=== PATIENT | female | born 1965 | race Caucasian/White ===

== ENCOUNTER 2024-05-29 15:56 | Inpatient (IN) | payer OTHER, SELFPAY ==
[2024-05-27] VITALS (10 sets, daily range): BP systolic 111–163; BP diastolic 71–86; BMI 26.7
--- NOTE | 2024-05-27 11:23 | ED.GENMED ---
History of Present Illness
<Argenis Pacheco PA-C - Last Filed: 05/27/24 19:01>
General
Chief Complaint: Abdominal Pain
Source: patient
Exam Limitations: none
Time Seen by Provider: 05/27/24 11:12
Nursing documentation reviewed up to this point in time: agreed with
History of Present Illness
History of Present Illness:
Patient is a 59-year-old female presenting to the emergency department for evaluation of abdominal pain. Patient states that pain started this morning when she woke up around 5:30 AM and was initially noted in the epigastric region. She describes
a sharp/cramping type pain, 10/10 in severity which did migrate and is now diffusely throughout her abdomen. Patient denies any associated nausea, vomiting, diarrhea, or constipation. Patient's last bowel movement was this morning and was normal
per patient. Patient denies any blood in her stool or abnormally dark stool patient denies any urinary symptoms.
Patient states yesterday she was feeling normal and did not have any abdominal pain. She has never experienced symptoms like this in the past.
Review of Systems
<Argenis Pacheco PA-C - Last Filed: 05/27/24 19:01>
Review of Systems
Allergies reviewed?: Yes
All Other Systems: ROS reviewed and negative except as documented in HPI and ROS
Phy Exam
<Argenis Pacheco PA-C - Last Filed: 05/27/24 19:01>
Physical Exam
Physical Exam:
Vitals: Patient's vital signs are stable. Afebrile
General: Patient is moderately uncomfortable due to pain. Nontoxic-appearing
Skin: Warm and dry, no rashes or lesions
Head: Normocephalic, atraumatic
Eyes: Sclera nonicteric. EOMs intact. No nystagmus.
Throat: Protecting airway
Neck: Normal ROM, no cervical spine tenderness, no meningismus. Trachea midline
Cardiac: Regular rate and rhythm, no murmurs.
Pulm: Normal respiratory effort, no wheezes, rales, rhonchi heard on exam.
Abdomen: Moderate diffuse abdominal tenderness with voluntary guarding. No CVA tenderness. No ecchymoses
Extremities: No evidence of cyanosis or edema. Good distal pulses
Neuro: AAOx3. CN II-XII intact. No focal neurologic deficits.
Psychiatric: Normal affect.
Course
<Argenis Pacheco PA-C - Last Filed: 05/27/24 19:01>
Orders/Labs/Results
Orders:
Orders
05/27/24 11:08
ECG [Electrocardiogram (*1)] Urgent
Reason for Study: Abdominal Pain
EKG- Treatment ONCE
05/27/24 11:45
0.9% Sodium Chloride 1000 ml [Nss] 1,000 ml IV BOLUS
HYDROmorphone [Dilaudid] 0.5 mg IV NOW STA
Ondansetron Injectable [Zofran] 4 mg IV NOW STA
05/27/24 11:46
CT Abd/Pel (IV only)-DH only Urgent
Comment:
Reason For Exam: Diffuse abdominal pain
05/27/24 11:55
C-Reactive Protein Urgent
Comment: ESR & CRP ADDED ON BY FLOOR 3:20PM 05-27-24
Complete Blood Count/With Diff Urgent
Comprehensive Metabolic Panel Urgent
Erythrocyte Sed Rate Urgent
Free T4 Urgent
Lactic Acid Q4H
Comment: CANCEL 2nd LACTIC ACID IF 1st LACTIC ACID IS LESS THAN 2
Lipase Urgent
TSH Reflex To Free T4 Urgent
Urinalysis Reflex To Culture Urgent
Date Specimen was Collected: 05/27/24
Time Specimen was Collected: 11:50
Urine Microscopic Reflex Cult Urgent
05/27/24 12:21
Troponin I Urgent
05/27/24 Dinner
NPO
Allow oral meds: Yes
Allow clear liquids: Sips of Clears
05/27/24 15:23
Add On- LAB Urgent
Tests Added?: ESR, CRP
05/27/24 15:50
HYDROmorphone [Dilaudid] 0.5 mg IV NOW STA
Ondansetron Injectable [Zofran] 4 mg IV NOW STA
05/27/24 16:20
Admit/Transfer Patient As Directed
Co-Sign Provider:
Level of Care: Observation services
Assign to:: Medical/Surgical
Physician / Group: farideh
Diagnosis: acute ileitis
Code Status As Directed
Resuscitation Status: Full Code
05/27/24 16:27
MR Enterography Routine
Comment:
Reason For Exam: ileal stricture
Recent pill cam endoscopy?: No
05/27/24 17:52
0.9% Sodium Chloride 1000 ml [Nss] 1,000 ml IV 100 mls/hr
HYDROmorphone [Dilaudid] 0.5 mg IV Q4HPRN PRN
Ondansetron Injectable [Zofran] 4 mg IV Q6HPRN PRN
05/27/24 17:52
GASTROINTESTINAL CONSULT Routine
Consulting Provider: Alan Akins
Was physician already notified: Yes
Activity As Directed
Activity Level: As Tolerated
Vital Signs As Directed
Frequency: Per unit guidelines
DX Deep Vein Thrombosis Video Routine
05/27/24 20:00
Heparin 5,000 units SC Q12
05/27/24 22:00
Amlodipine [Norvasc] 10 mg PO HS
Atenolol [Tenormin] 50 mg PO HS
Fenofibrate 145 [Tricor] 145 mg PO HS
Lisinopril [Zestril] 40 mg PO HS
Rosuvastatin Calcium [Crestor] 40 mg PO HS
05/28/24 06:00
Complete Blood Count/With Diff IN AM
Comprehensive Metabolic Panel IN AM
Levothyroxine [Synthroid] 88 mcg PO DAILY @ 0600
Abnormal Lab Results
05/27/24
11:55
RBC 3.48 L 10^6/uL
(4.20-5.40)
Hct 35.7 L %
(37.0-47.0)
MCV 102.6 H fL
(81.0-99.0)
MCH 35.6 H pg
(27.0-31.0)
Absolute Lymphs (auto) 0.5 L 10^3/uL
(1.2-3.4)
Neutrophils % 81.8 H %
(42.2-75.2)
Lymphocytes % 9.6 L %
(20.5-51.1)
Glucose 156 H mg/dl
(70-99)
C-Reactive Protein 17.30 H mg/L
(0.0-10.00)
TSH (Reflex) 10.70 H uIU/ml
(0.47-4.68)
Urine Ketones Trace A
(Negative)
Urine Bilirubin 1+ A
(Negative)
Urine Urobilinogen 2+ A
(Neg - 1+)
Leukocyte Esterase Rfl Trace A
(Negative)
Urine Bacteria (Reflex) Few A
(Negative)
05/27/24 11:55
05/27/24 11:55
Vital Signs
Initial and Last Documented VS:
Initial Vital Signs
Temp Pulse Resp BP Pulse Ox
98.1 F 96 18 127/83 95
05/27/24 11:05 05/27/24 11:05 05/27/24 11:05 05/27/24 11:05 05/27/24 11:05
Last Documented Vital Signs
Temp Pulse Resp BP Pulse Ox
99.4 F 116 19 141/81 99
07/22/24 18:13 05/27/24 18:13 05/27/24 18:13 05/27/24 18:13 05/27/24 18:24
<Jose Elias Lopez, - Last Filed: 05/27/24 13:46>
Orders/Labs/Results
Orders:
Orders
05/27/24 11:08
ECG [Electrocardiogram (*1)] Urgent
Reason for Study: Abdominal Pain
EKG- Treatment ONCE
05/27/24 11:45
0.9% Sodium Chloride 1000 ml [Nss] 1,000 ml IV BOLUS
HYDROmorphone [Dilaudid] 0.5 mg IV NOW STA
Ondansetron Injectable [Zofran] 4 mg IV NOW STA
05/27/24 11:46
CT Abd/Pel (IV only)-[facility] only Urgent
Comment:
Reason For Exam: Diffuse abdominal pain
05/27/24 11:55
C-Reactive Protein Urgent
Comment: ESR & CRP ADDED ON BY FLOOR 3:20PM 05-27-24
Complete Blood Count/With Diff Urgent
Comprehensive Metabolic Panel Urgent
Erythrocyte Sed Rate Urgent
Free T4 Urgent
Lactic Acid Q4H
Comment: CANCEL 2nd LACTIC ACID IF 1st LACTIC ACID IS LESS THAN 2
Lipase Urgent
TSH Reflex To Free T4 Urgent
Urinalysis Reflex To Culture Urgent
Date Specimen was Collected: 05/27/24
Time Specimen was Collected: 11:50
Urine Microscopic Reflex Cult Urgent
05/27/24 12:21
Troponin I Urgent
05/27/24 Dinner
NPO
Allow oral meds: Yes
Allow clear liquids: Sips of Clears
05/27/24 15:23
Add On- LAB Urgent
Tests Added?: ESR, CRP
05/27/24 15:50
HYDROmorphone [Dilaudid] 0.5 mg IV NOW STA
Ondansetron Injectable [Zofran] 4 mg IV NOW STA
05/27/24 16:20
Admit/Transfer Patient As Directed
Co-Sign Provider:
Level of Care: Observation services
Assign to:: Medical/Surgical
Physician / Group: farideh
Diagnosis: acute ileitis
Code Status As Directed
Resuscitation Status: Full Code
05/27/24 16:27
MR Enterography Routine
Comment:
Reason For Exam: ileal stricture
Recent pill cam endoscopy?: No
05/27/24 17:52
0.9% Sodium Chloride 1000 ml [Nss] 1,000 ml IV 100 mls/hr
HYDROmorphone [Dilaudid] 0.5 mg IV Q4HPRN PRN
Ondansetron Injectable [Zofran] 4 mg IV Q6HPRN PRN
05/27/24 17:52
GASTROINTESTINAL CONSULT Routine
Consulting Provider: Alan Akins
Was physician already notified: Yes
Activity As Directed
Activity Level: As Tolerated
Vital Signs As Directed
Frequency: Per unit guidelines
DX Deep Vein Thrombosis Video Routine
05/27/24 20:00
Heparin 5,000 units SC Q12
05/27/24 22:00
Amlodipine [Norvasc] 10 mg PO HS
Atenolol [Tenormin] 50 mg PO HS
Fenofibrate 145 [Tricor] 145 mg PO HS
Lisinopril [Zestril] 40 mg PO HS
Rosuvastatin Calcium [Crestor] 40 mg PO HS
05/28/24 06:00
Complete Blood Count/With Diff IN AM
Comprehensive Metabolic Panel IN AM
Levothyroxine [Synthroid] 88 mcg PO DAILY @ 0600
Abnormal Lab Results
05/27/24
11:55
RBC 3.48 L 10^6/uL
(4.20-5.40)
Hct 35.7 L %
(37.0-47.0)
MCV 102.6 H fL
(81.0-99.0)
MCH 35.6 H pg
(27.0-31.0)
Absolute Lymphs (auto) 0.5 L 10^3/uL
(1.2-3.4)
Neutrophils % 81.8 H %
(42.2-75.2)
Lymphocytes % 9.6 L %
(20.5-51.1)
Glucose 156 H mg/dl
(70-99)
C-Reactive Protein 17.30 H mg/L
(0.0-10.00)
TSH (Reflex) 10.70 H uIU/ml
(0.47-4.68)
Urine Ketones Trace A
(Negative)
Urine Bilirubin 1+ A
(Negative)
Urine Urobilinogen 2+ A
(Neg - 1+)
Leukocyte Esterase Rfl Trace A
(Negative)
Urine Bacteria (Reflex) Few A
(Negative)
05/27/24 11:55
05/27/24 11:55
Vital Signs
Initial and Last Documented VS:
Initial Vital Signs
Temp Pulse Resp BP Pulse Ox
98.1 F 96 18 127/83 95
05/27/24 11:05 05/27/24 11:05 05/27/24 11:05 05/27/24 11:05 05/27/24 11:05
Last Documented Vital Signs
Temp Pulse Resp BP Pulse Ox
99.4 F 116 19 141/81 99
05/27/24 18:13 05/27/24 18:13 05/27/24 18:13 05/27/24 18:13 05/27/24 18:24
<Argenis Pacheco PA-C - Last Filed: 05/27/24 19:01>
MDM/Problems Addressed
Differential Diagnosis Includes:
Not limited to: Gastroenteritis, pancreatitis, cholecystitis, biliary colic, appendicitis, diverticulitis, mesenteric ischemia, GERD, gastric ulcer, constipation, UTI
MDM/Problems Addressed:
5-year-old female presenting to the emergency department with acute onset significant abdominal pain since this morning. No associated fever, chills, nausea, vomiting, diarrhea. No history of similar symptoms. Vital stable on arrival, afebrile.
Physical exam as above. Patient moderately uncomfortable due to pain. Abdomen is soft with diffuse moderate tenderness with voluntary guarding. Heart regular rate and rhythm. Lungs clear bilaterally. Great distal pulses. Physical exam
difficult due to patient's level discomfort. Will give Dilaudid, Zofran, fluids and reassess once patient more comfortable. Will obtain basic labs, lactic, UA. EKG noted. No acute ischemic changes although there is a left bundle branch block
with no prior EKG to compare to. Given history of epigastric discomfort�will check troponin although patient has no current chest pain or shortness of breath. Do not suspect cardiac process
Labs noted. No clinically significant abnormalities. Troponin is normal. Lactic acid is normal. Urine shows no signs of acute infection. CT pending.
On reexamination�patient does appear somewhat more comfortable following Dilaudid and still has pretty significant abdominal pain, possibly slightly worse in right lower quadrant. Will await CT results.
CT report reviewed which shows acute ileitis and possible findings suggesting terminal ileal stricture. Recommendation for further imaging with MRI. Given patient's significant level of discomfort and findings on CT�will admit for further workup
and pain management. Will check ESR/CRP. No infectious symptoms�will avoid antibiotic this time. Discussed with hospitalist patient accepted to their service.
Chronic conditions affecting care:
N/A
Acute Exacerbation and/or Progression of Chronic Illness:
N/A
<Argenis Pacheco PA-C - Last Filed: 05/27/24 19:01>
*Radiology
Radiology exam reviewed: radiology read reviewed
*Pulse Oximetry
Patient hypoxic: no
*EKG
Interpreted by ED Provider?: Yes
Interpretation: abnormal
Comparison EKG: no comparison EKG present
Heart Rate: 80
Rate: normal
Rhythm: sinus
QRS Pattern: left bundle branch block
Ischemia: no ischemia
*Critical Care Note
Total Time (30-74mins, 75-104mins- exclusive of procedures): Not Applicable
<Argenis Pacheco PA-C - Last Filed: 05/27/24 19:01>
Patient Management
Discussion with other providers: Hospitalist
Escalation/DeEscalation of care consider admission/obs:
Admit for further workup/pain management. Likely will get GI consult
ED Attending Note
<Argenis Pacheco PA-C - Last Filed: 05/27/24 19:01>
-
Portions of this chart may have been created with voice recognition software.� Occasional wrong word or��sound alike� substitutions may have occurred due to the inherent limitations of voice recognition software.
<Jose Elias Lopez DO - Last Filed: 05/27/24 13:46>
ED Attending Note
Patient seen and examined by attending physician: Yes
I performed the substantive portion of visit, reviewed & personally made and approve the management plan that is documented in note by myself or JOB.: Yes
ED Attending Note:
seen with Pa agree with a/p, acute abd pain mid to lower, labs noted, CT pending
Discharge Plan
Departure
Patient Disposition: Admit
Date of Disposition: 05/27/24
Time of Disposition: 15:26
Presentation/result/management discussed w/ accepting MD/DO: Hospitalist
Discharge Problem:
Ileitis, Abdominal pain
Interventions
Interventions:
*Risk Screen - Suicide Last Done: 05/27/24 11:05
*General Assessment Last Done: 05/27/24 11:05
*Neglect/Abuse Screening Last Done: 05/27/24 11:05
ED- Fall Risk Assessment Last Done: 05/27/24 17:59
*ED COVID-19 Vaccine History Last Done: 05/27/24 18:11
*Nursing Disposition Last Done: 05/27/24 17:59
UL-Sixwst-Ndzeqempzb Assessment Last Done: 05/27/24 11:44
Discharge Date and Time
Discharge Date/Time: 05/27/24 18:00
[2024-05-27] MEDS: DILAUDID 0.5 MG IV ×3 (11:54→22:52)
[2024-05-27] MEDS: NSS 1000 IV ×2 (11:54→18:34)
[2024-05-27] MEDS: ZOFRAN 4 MG IV ×2 (11:54→16:21)
[2024-05-27 12:14] LABS: % Basophils 0.6 % (0-2); % Eosinophils 1.5 % (0-6); % Immature Granulocytes 0.2 % (0-0.5); % Lymphocytes 9.6 % (20.5-51.1); % Monocytes 6.3 % (1.7-9.3); % Neutrophils 81.8 % (42.2-75.2); Absolute Eosinophils 0.1 10^3/uL (0-0.7); Absolute Lymphocytes 0.5 10^3/uL (1.2-3.4); Absolute Monocytes 0.3 10^3/uL (0.1-0.6); Absolute Neutrophils 3.9 10^3/uL (1.4-6.5); Hematocrit 35.7 % (37.0-47.0); Hemoglobin 12.4 g/dL (12.0-16.0); Mean Corp Hgb Conc. 34.7 g/dL (33.0-37.0); Mean Corpuscular Hgb 35.6 pg (27.0-31.0); Mean Corpuscular Volume 102.6 fL (81.0-99.0); Mean Platelet Volume 9.3 fL (7.4-10.4); Nucleated Red Blood Cells % 0 %; Platelet Count 178 10^3/uL (130-400); Red Blood Cell Count 3.48 10^6/uL (4.20-5.40); Red Cell Dist. Width 13.8 % (11.5-14.5); White Blood Cell Count 4.8 10^3/uL (4.8-10.8)
[2024-05-27 12:25] LABS: ALT (SGPT) 19 U/L (0-35); AST (SGOT) 30 U/L (14-36); Albumin 4.6 g/dl (3.5-5.0); Alkaline Phosphatase 45 U/L (38-126); Blood Urea Nitrogen 16 mg/dl (7-17); Calcium 9.2 mg/dl (8.4-10.2); Carbon Dioxide 23 mmol/L (22-30); Chloride 104 mmol/L (98-107); Estimated Creatinine Clearance 65 ml/min; Glucose 156 mg/dl (70-99); Lactic Acid 1.5 mmol/L (0.7-2.0); Lipase 120 U/L (23-300); Potassium 4.1 mmol/L (3.5-5.1); Sodium 136 mmol/L (135-145); Total Bilirubin 0.9 mg/dl (0.2-1.3); Total Protein 7.3 g/dl (6.3-8.2); eGFR > 60.00
[2024-05-27 12:28] LABS: Urine Albumin Trace (Neg - Trace); Urine Bilirubin 1+ (Negative); Urine Character Clear (Clear); Urine Color Yellow; Urine Glucose Negative (Negative); Urine Ketone Trace (Negative); Urine Leukocyte Trace (Negative); Urine Nitrite Negative (Negative); Urine Occult Blood Negative (Negative); Urine Specific Gravity 1.015 (<1.030); Urine Urobilinogen 2+ (Neg - 1+); Urine pH 6.5 (5.0-9.0)
[2024-05-27 12:55] LABS: Troponin I < 0.012 ng/ml
[2024-05-27 13:10] LABS: Urine Bacteria Few (Negative); Urine Red Blood Cell 0-2 /HPF (0-2)
[2024-05-27 13:22] LABS: Free T4 1.61 ng/dl (0.78-2.19)
[2024-05-27 15:51] LABS: Erythrocyte Sed Rate 10 mm/hour (0-20)
--- NOTE | 2024-05-27 16:25 | HPS.HSE ---
Family Physician
-
Family Physician: Michelle Morris
Chief Complaint
-
abdominal pain
History of Present Illness
59-year-old female past medical history of hypertension, hypothyroidism, hyperlipidemia, presenting for abdominal pain. She started having abdominal pain this morning located epigastric region described as sharp/cramping and 10 out of 10 in
severity which migrated diffusely throughout her abdomen later. Pain is currently across the lower abdomen bilaterally. Patient denies nausea or vomiting or diarrhea. Her last bowel movement was this morning and normal. Denies any blood in the
stool or dark stool. She denies any urinary symptoms. She has never had symptoms like this before.
She smokes 1 pack of cigarettes per day. He drinks alcohol occasionally. Denies marijuana or any other drugs.
Mother had history of gastric ulcers.
Medical History
Past Medical History
Past Medical History: Reports Other (hypertension, hypothyroidism, hyperlipidemia)
Past Surgical History: Reports None
Social History
Tobacco: Smoker
Alcohol: None
Drug: None
Family History
Family History: Not pertinent
Allergies / Home Medications
Allergies reflects when Allergies were last updated in [facility].
Home Medications with original date entered in [facility]
Allergy/Medication List:
Allergies
Allergy/AdvReac Type Severity Reaction Status Date / Time
No Known Allergies Allergy Verified 05/27/24 11:05
Home Medications
amlodipine 10 mg tablet 10 mg PO HS 05/27/24
atenolol 50 mg tablet 50 mg PO HS 05/27/24
fenofibrate nanocrystallized 145 mg tablet 145 mg PO HS 05/27/24
levothyroxine 88 mcg tablet 88 mcg PO DAILY 05/27/24
lisinopril 40 mg tablet 40 mg PO HS 05/27/24
rosuvastatin 40 mg tablet 40 mg PO HS 05/27/24
Review of Systems
-
History Source: Patient
A 12 point ROS was completed and negative except as noted: Yes
Constitutional: Reports No Symptoms
EENT: Reports No Symptoms
Respiratory: Reports No Symptoms
Cardiac: Reports No Symptoms
Abdomen/GI: Reports See HPI
: Reports No Symptoms
Musculoskeletal: Reports No Symptoms
Skin: Reports No Symptoms
Neurological: Reports No Symptoms
Endocrine: Reports No Symptoms
Hematologic/Lymphatic: Reports No Symptoms
Psych: Reports No Symptoms
Physical Exam
Vital Signs
Vital Signs
Temp Pulse Resp BP Pulse Ox
98.1 F 112 20 138/86 91
05/27/24 11:05 05/27/24 14:29 05/27/24 14:29 05/27/24 15:00 05/27/24 15:30
Physical Exam
General: Well Developed, Well Nourished and No Apparent Distress
HEENT: NormoCephalic, Moist mucous membranes and Atraumatic
Respiratory: Clear
Cardiac: S1/S2 and Regular Rhythm; No Murmur or Rub
GI: Soft, Non Distended, Normal Bowel Sounds and Tender (diffusely ); No Organomegaly
Rectal: Deferred by Provider
Musculoskeletal: No Clubbing, No Cyanosis and No Edema
Skin: No Rash
Neuro: Nonfocal/grossly intact
Laboratory Results
-
05/27/24 11:55
05/27/24 11:55
Laboratory Results
Lactic Acid Cancelled 05/27/24 15:45
Total Bilirubin 0.9 mg/dl (0.2-1.3) 05/27/24 11:55
AST 30 U/L (14-36) 05/27/24 11:55
ALT 19 U/L (0-35) 05/27/24 11:55
Alkaline Phosphatase 45 U/L (38-126) 05/27/24 11:55
Troponin I < 0.012 ng/ml 05/27/24 12:21
Lipase 120 U/L (23-300) 05/27/24 11:55
Data Reviewed
-
Lab Data: Labs Reviewed by me
Old Records: Reviewed
Impression/Plan
-
IMPRESSION:
PLAN:
# Acute ileitis with possible terminal ileitis
-CT abdomen pelvis shows inflammation of distal ileum, collapsed terminal ileum with suspicion for possible terminal ileal stricture
-N.p.o.
-IV fluids
-Zofran, Dilaudid
-MRI enterography ordered
-GI consulted
Essential hypertension
-Continue amlodipine, atenolol, lisinopril
Hypothyroidism
-Continue levothyroxine
Hyperlipidemia
-Continue fenofibrate
Active smoker
Full code
DVT prophylaxis�heparin
N.p.o.
--- NOTE | 2024-05-27 18:23 | PTCARENOTE ---
05/27- Patient transferred and oriented to unit without issue. AAOX3 but anxious, tearful and mildly agitated but cooperative. Patient c/o significant abdominal pain and nausea but denies need to vomit. Med/Surg.
--- NOTE | 2024-05-27 19:09 | CON.GI ---
Consultation
-
Date/Time Consultation Requested: 05/27/24 4:00pm
Date/Time Consultation Performed: 05/27/24 7:10pm
Requesting Provider: Rafael Vizcarra
Performing Provider: Alan Akins
Reason for Consultation: abd pain, abnl CT
Medical History
Chief Complaint / HPI
Chief Complaint: abd pain, abnl CT
History of Present Illness:
Patient is a 59-year-old female who presents with abdominal pain that woke her from sleep this morning. It was severe initially in the epigastric region and then became more diffuse. She denies any symptoms when she went to bed last night. She
denies any fevers, diarrhea, vomiting. Her bowels have been normal. She denies any previous episodes similar to this. No prior colonoscopy. She had cologuard this year that was negative
Past Medical History
Past Medical History: HTN and Hypothyroidism
Past Surgical History: None
Social History
Tobacco: Smoker
Alcohol: None
Family History
Family History: Reviewed & Not Pertinent
Allergies / Home Medications
Allergy/AdvReac Type Severity Reaction Status Date / Time
No Known Allergies Allergy Verified 05/27/24 11:05
�Medication �Instructions �Recorded
amlodipine 10 mg tablet 10 mg PO HS 05/27/24
atenolol 50 mg tablet 50 mg PO HS 05/27/24
fenofibrate nanocrystallized 145 145 mg PO HS 05/27/24
mg tablet
levothyroxine 88 mcg tablet 88 mcg PO DAILY 05/27/24
lisinopril 40 mg tablet 40 mg PO HS 05/27/24
rosuvastatin 40 mg tablet 40 mg PO HS 05/27/24
Review of Systems
-
All other systems: A 12 pt ROS was Negative except as stated above in HPI
Vital Signs
Temp Pulse Resp BP Pulse Ox
99.4 F 116 19 141/81 99
05/27/24 18:13 05/27/24 18:13 05/27/24 18:13 05/27/24 18:13 05/27/24 18:24
Physical Exam
Exam
General: Well Developed and Well Nourished
HEENT: Normocephalic and Atraumatic
Respiratory: Non Labored Respirations
GI: Soft, Non Distended and Tender (Moderately tender to mild palpation diffusely with guarding, no rebound)
Skin: Warm and Dry
Results
WBC 4.8 10^3/uL (4.8-10.8) 05/27/24 11:55
Hgb 12.4 g/dL (12.0-16.0) 05/27/24 11:55
Hct 35.7 % (37.0-47.0) L 05/27/24 11:55
MCV 102.6 fL (81.0-99.0) H 05/27/24 11:55
Plt Count 178 10^3/uL (130-400) 05/27/24 11:55
Absolute Neuts (auto) 3.9 10^3/uL (1.4-6.5) 05/27/24 11:55
Sodium 136 mmol/L (135-145) 05/27/24 11:55
Potassium 4.1 mmol/L (3.5-5.1) 05/27/24 11:55
Chloride 104 mmol/L (98-107) 05/27/24 11:55
Carbon Dioxide 23 mmol/L (22-30) 05/27/24 11:55
BUN 16 mg/dl (7-17) 05/27/24 11:55
Creatinine 0.9 mg/dL (0.6-1.0) 05/27/24 11:55
Calcium 9.2 mg/dl (8.4-10.2) 05/27/24 11:55
Total Bilirubin 0.9 mg/dl (0.2-1.3) 05/27/24 11:55
AST 30 U/L (14-36) 05/27/24 11:55
ALT 19 U/L (0-35) 05/27/24 11:55
Alkaline Phosphatase 45 U/L (38-126) 05/27/24 11:55
Lipase 120 U/L (23-300) 05/27/24 11:55
Diagnostic Image Results:
Prior GI Procedures:
EGD:
Colonoscopy:
Assessment / Plan
-
Summary: 59yo female no significant PMH presents with sudden onset epigastric, then diffuse abd pain x 1 day. Denies diarreha, fever, n/v, sick contacts. CT shows circumferential thickening distal ileum with intraluminal stool and minimal upstream
dilation c/w stricture of TI. Denies NSAIDs. No FH IBD or CRC. No prior colonoscopy.
Impression:
Sudden onset diffuse abd pain x 1 day
Thickening distal ileum with minimal upstream dilation, intraluminal stool ('SB feces sign') suggestive of stricture
Recommendations:
NPO
MR enterography
Start abx to empirically treat possible infectious ileitis
Check stool if diarrhea
-
-
Thank you for consultation and allowing me to participate in the patient's care. Please call the early childhood education instructor GI physician during the after hours with any questions or concerns.
[2024-05-27] MEDS: ZOSYN 50 IV (21:44)
[2024-05-27] MEDS: CRESTOR 40 MG PO (22:44)
[2024-05-27] MEDS: TRICOR 145 MG PO (22:44)
[2024-05-27] MEDS: ZESTRIL 40 MG PO (22:45)
[2024-05-27] MEDS: TENORMIN 50 MG PO (22:45)
[2024-05-27] MEDS: NORVASC 10 MG PO (22:45)
[2024-05-27] MEDS: HEPARIN 5000 UNITS SC (22:47)
[2024-05-28] MEDS: ZOSYN 50 IV ×4 (03:10→20:57)
[2024-05-28] MEDS: DILAUDID 0.5 MG IV ×3 (03:30→20:54)
[2024-05-28] MEDS: SYNTHROID 88 MCG PO (06:06)
[2024-05-28 07:25] VITALS: BP 124/58
[2024-05-28 07:39] LABS: Hemoglobin 11.1 g/dL (12.0-16.0); Mean Corp Hgb Conc. 34.7 g/dL (33.0-37.0); Mean Corpuscular Hgb 35.9 pg (27.0-31.0); Mean Corpuscular Volume 103.6 fL (81.0-99.0); Mean Platelet Volume 9.2 fL (7.4-10.4); Platelet Count 145 10^3/uL (130-400); Red Blood Cell Count 3.09 10^6/uL (4.20-5.40); Red Cell Dist. Width 14.2 % (11.5-14.5); White Blood Cell Count 7.2 10^3/uL (4.8-10.8)
[2024-05-28] MEDS: NICODERM TRANSDERMAL 14 MG TRANSDERM (08:10)
[2024-05-28] MEDS: HEPARIN 5000 UNITS SC ×2 (08:11→20:54)
[2024-05-28 08:14] LABS: ALT (SGPT) 16 U/L (0-35); AST (SGOT) 23 U/L (14-36); Albumin 3.7 g/dl (3.5-5.0); Alkaline Phosphatase 36 U/L (38-126); Blood Urea Nitrogen 15 mg/dl (7-17); Calcium 8.6 mg/dl (8.4-10.2); Carbon Dioxide 23 mmol/L (22-30); Chloride 106 mmol/L (98-107); Estimated Creatinine Clearance 53 ml/min; Glucose 98 mg/dl (70-99); Potassium 4.2 mmol/L (3.5-5.1); Sodium 137 mmol/L (135-145); Total Bilirubin 1.1 mg/dl (0.2-1.3); Total Protein 6.4 g/dl (6.3-8.2); eGFR 57.52
[2024-05-28] MEDS: NSS 1000 IV ×2 (08:14→13:23)
[2024-05-28 10:25] LABS: % Basophils 0.4 % (0-2); % Immature Granulocytes 0.4 % (0-0.5); % Lymphocytes 6.1 % (20.5-51.1); % Monocytes 4.9 % (1.7-9.3); % Neutrophils 87.2 % (42.2-75.2); Absolute Eosinophils 0.1 10^3/uL (0-0.7); Absolute Lymphocytes 0.4 10^3/uL (1.2-3.4); Absolute Monocytes 0.4 10^3/uL (0.1-0.6); Absolute Neutrophils 6.3 10^3/uL (1.4-6.5); Nucleated Red Blood Cells % 0 %
--- NOTE | 2024-05-28 11:15 | W.PN.HOSP.TC ---
Addendum entered and electronically signed by Nash Walsh MD 05/28/24 11:23:
CBC with macrocystic changes, will check B-12, Folate
Pt states she generally drinks 2-3 glasses of wine per week, never more than that amount
Original Note:
Today's Communication/Plan
-
MRI enterography, pending consider Surgical evaluation as per GI
Assessment / Plan
Assessment / Plan
# Acute ileitis with possible terminal ileitis
-CT abdomen pelvis shows inflammation of distal ileum, collapsed terminal ileum with suspicion for possible terminal ileal stricture
-N.p.o.
-IV fluids
-Zofran, Dilaudid
-MRI enterography ordered
-GI consulted, input appreciated
Pt started on Zosyn 3.375 IV q6H
Essential hypertension
-Continue amlodipine, atenolol, lisinopril
Hypothyroidism
-Continue levothyroxine
Hyperlipidemia
-Continue fenofibrate
Active smoker
Full code
DVT prophylaxis�heparin
N.p.o.
Anticipated Discharge: > 48 hours
Subjective/Interval History
-
Date of Service: May 28, 2024
Still with abdominal pain
Objective Data
-
Labs:
Laboratory Results
05/28/24
07:13
WBC 7.2
Hgb 11.1 L
Hct 32.0 L
Plt Count 145
Sodium 137
Potassium 4.2
Chloride 106
Carbon Dioxide 23
BUN 15
Creatinine 1.1 H
Glucose 98
Calcium 8.6
Total Bilirubin 1.1
AST 23
ALT 16
Alkaline Phosphatase 36 L
Vital Signs:
Vital Signs
Temp Pulse Resp BP Pulse Ox
98.4 F 91 19 124/58 92
05/28/24 07:25 05/28/24 07:25 05/28/24 07:25 05/28/24 07:25 05/28/24 07:25
I&O
05/27/24 05/28/24 05/29/24
06:59 06:59 06:59
Intake Total 1250 / 1250
Balance 1250 / 1250
Review of Systems
-
History Source: Patient
Constitutional: Denies Fever
EENT: Reports No Symptoms Reported
Respiratory: Reports No Symptoms; Denies Trouble Breathing
Cardiac: Reports No Symptoms; Denies Chest Pain
Abdomen/GI: Reports Abdominal Pain
Genitourinary: Reports No Symptoms
Physical Exam
-
General: Well Developed, Well Nourished and No Apparent Distress
HEENT: Normocephalic, Atraumatic and Moist Mucous Membranes
Respiratory: Clear to Auscultation; Negative Wheezes, Rales or Rhonchi
Cardiac: Regular Rhythm and S1/S2
GI: Soft, Nondistended, Normal Bowel Sounds and Tender
Musculoskeletal: No Clubbing, No Cyanosis and No Edema
--- NOTE | 2024-05-28 16:09 | CM ---
Atttempted IA 2x- off unit
Pt from home and is OBS
--- NOTE | 2024-05-28 18:01 | W.PN.UPDATE ---
Update Note
Progress Note Update
Attempted to see patient today. 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 Will see the patient tomorrow
[2024-05-28] MEDS: NORVASC 10 MG PO (20:57)
[2024-05-28] MEDS: ZESTRIL 40 MG PO (20:57)
[2024-05-28] MEDS: CRESTOR 40 MG PO (20:57)
[2024-05-28] MEDS: TENORMIN 50 MG PO (20:58)
[2024-05-28] MEDS: TRICOR 145 MG PO (20:58)
[2024-05-28 23:06] VITALS: BP 158/80
[2024-05-29] MEDS: ZOSYN 50 IV ×4 (01:05→20:55)
[2024-05-29] MEDS: NSS 1000 IV ×2 (01:05→12:16)
[2024-05-29] MEDS: DILAUDID 0.5 MG IV ×4 (01:07→20:52)
[2024-05-29] MEDS: ZOFRAN 4 MG IV (05:02)
[2024-05-29] MEDS: SYNTHROID 88 MCG PO (05:03)
[2024-05-29 07:30] VITALS: BP 157/80
[2024-05-29] MEDS: HEPARIN 5000 UNITS SC ×2 (07:41→20:54)
[2024-05-29] MEDS: NICODERM TRANSDERMAL 14 MG TRANSDERM (07:42)
[2024-05-29 09:11] LABS: % Basophils 0.3 % (0-2); % Eosinophils 0.4 % (0-6); % Lymphocytes 5.9 % (20.5-51.1); % Monocytes 3.4 % (1.7-9.3); Absolute Immature Granulocytes 0.1 10^3/uL (0-0.05); Absolute Lymphocytes 0.4 10^3/uL (1.2-3.4); Absolute Monocytes 0.3 10^3/uL (0.1-0.6); Absolute Neutrophils 6.5 10^3/uL (1.4-6.5); Hematocrit 30.7 % (37.0-47.0); Hemoglobin 10.5 g/dL (12.0-16.0); Mean Corp Hgb Conc. 34.2 g/dL (33.0-37.0); Mean Corpuscular Hgb 34.7 pg (27.0-31.0); Mean Corpuscular Volume 101.3 fL (81.0-99.0); Mean Platelet Volume 9.6 fL (7.4-10.4); Nucleated Red Blood Cells % 0 %; Platelet Count 159 10^3/uL (130-400); Red Blood Cell Count 3.03 10^6/uL (4.20-5.40); Red Cell Dist. Width 13.8 % (11.5-14.5); White Blood Cell Count 7.3 10^3/uL (4.8-10.8)
[2024-05-29 10:33] LABS: Blood Urea Nitrogen 16 mg/dl (7-17); Calcium 8.5 mg/dl (8.4-10.2); Carbon Dioxide 19 mmol/L (22-30); Chloride 105 mmol/L (98-107); Estimated Creatinine Clearance 73 ml/min; Glucose 94 mg/dl (70-99); Potassium 3.3 mmol/L (3.5-5.1); Sodium 135 mmol/L (135-145); eGFR > 60.00
[2024-05-29 11:32] LABS: Folate 4.4 ng/ml (2.76-20); Vitamin B12 < 159 pg/ml (239-931)
--- NOTE | 2024-05-29 15:22 | W.PN.HOSP.TC ---
Addendum entered and electronically signed by Nash Walsh MD 05/29/24 15:31:
Vit B12 <159, explains macrocytic changes, will order supplement
Original Note:
Today's Communication/Plan
-
MRE
allow clear liquids
will write for lower dose Dilaudid for less severe pain
Assessment / Plan
Assessment / Plan
# Acute ileitis with possible terminal ileitis. Appears less symptomatic today
-CT abdomen pelvis shows inflammation of distal ileum, collapsed terminal ileum with suspicion for possible terminal ileal stricture
-will allow clear liquids with abd that is softer and less tender
-IV fluids
-Zofran, Dilaudid
-MRI enterography ordered, hopefully will be done today
-GI consulted, input appreciated
Pt started on Zosyn 3.375 IV q6H
Essential hypertension
-Continue amlodipine, atenolol, lisinopril
Hypothyroidism
-Continue levothyroxine
Hyperlipidemia
-Continue fenofibrate
Active smoker
Full code
DVT prophylaxis�heparin
Anticipated Discharge: > 48 hours
Subjective/Interval History
-
Date of Service: May 29, 2024
Was unable to perform MRI due to claustrophilia, but is feeling somewhat better today
Objective Data
-
Labs:
Laboratory Results
05/29/24
08:36
WBC 7.3
Hgb 10.5 L
Hct 30.7 L
Plt Count 159
Sodium 135
Potassium 3.3 L
Chloride 105
Carbon Dioxide 19 L
BUN 16
Creatinine 0.8
Glucose 94
Calcium 8.5
Vital Signs:
Vital Signs
Temp Pulse Resp BP Pulse Ox
98.1 F 81 18 157/80 93
05/29/24 07:30 05/29/24 07:30 05/29/24 07:30 05/29/24 07:30 05/29/24 07:30
I&O
05/28/24 05/29/24 05/30/24
06:59 06:59 06:59
Intake Total 1250 / 1250 1200 / 1200
Balance 1250 / 1250 1200 / 1200
Review of Systems
-
History Source: Patient
Constitutional: Denies Fever
EENT: Reports No Symptoms Reported
Respiratory: Reports No Symptoms; Denies Trouble Breathing
Cardiac: Reports No Symptoms; Denies Chest Pain
Abdomen/GI: Reports Abdominal Pain
Genitourinary: Reports No Symptoms
Physical Exam
-
General: Well Developed, Well Nourished and No Apparent Distress
HEENT: Normocephalic, Atraumatic and Moist Mucous Membranes
Respiratory: Clear to Auscultation; Negative Wheezes, Rales or Rhonchi
Cardiac: Regular Rhythm and S1/S2
GI: Soft, Nondistended, Normal Bowel Sounds (more active today) and Tender (less tender, belly is softer)
Musculoskeletal: No Clubbing, No Cyanosis and No Edema
[2024-05-29 15:31] VITALS: BP 141/77
--- NOTE | 2024-05-29 15:47 | CM ---
geek squad manager reviewed patient's chart and met with patient and patient was admitted under OBS. Patient made aware and became very upset, patient lives alone in a 2 story home, patient is independent with adl's and ambulation, no dme, patient drives.
Pharmacy: [facility].
PCP: Dr. Morris
Plan; Home when stable, no needs.
--- NOTE | 2024-05-29 15:48 | W.PN.GI.CBS2 ---
Addendum entered and electronically signed by Romulo Feliz MD 05/29/24 20:51:
I saw and examined the patient.
The CRIMINAL LAWYER's note was reviewed and I agree with the note.
Impression:
Sudden onset diffuse abd pain / CT abd -Thickening of distal ileum with minimal upstream dilation, intraluminal stool ('SB feces sign') suggestive of stricture/elevated CRP
considering clinical presentation likely infectious unlikely IBD
follow up MRE
continue antibiotics
if diarrhea stool for infections
repeat CRP in am
if abdominal pain persists will recommend surgical eval
Original Note:
Today's Communication / Plan
-
as per plan
Assessment / Plan
-
Summary: 59yo female no significant PMH presents with sudden onset epigastric, then diffuse abd pain x 1 day. Denies diarreha, fever, n/v, sick contacts. CT shows circumferential thickening distal ileum with intraluminal stool and minimal upstream
dilation c/w stricture of TI. Denies NSAIDs. No FH IBD or CRC. No prior colonoscopy.
Impression:
Sudden onset diffuse abd pain x 1 day
Thickening distal ileum with minimal upstream dilation, intraluminal stool ('SB feces sign') suggestive of stricture
Recommendations:
NPO
Continue IVF
MR enterography
Continue IV abx to empirically treat possible infectious ileitis
Check stool if diarrhea
Subjective
Subjective
Date of Service: May 29, 2024
Patient with vomiting after contrast for MRE yesterday. NO BM, no flatus. Still with RLQ pain. Going for MRE today. Continues on IVF for hydration and electrolyte replacement.
Objective
Data Reviewed
Laboratory Data:
Laboratory Results
05/29/24 08:36
05/29/24 08:36
Laboratory Results
Total Bilirubin 1.1 mg/dl (0.2-1.3) 05/28/24 07:13
AST 23 U/L (14-36) 05/28/24 07:13
ALT 16 U/L (0-35) 05/28/24 07:13
Alkaline Phosphatase 36 U/L (38-126) L 05/28/24 07:13
Lipase 120 U/L (23-300) 05/27/24 11:55
Vital Signs and I&O:
Vital Signs
Temp Pulse Resp BP Pulse Ox
98.2 F 86 20 141/77 95
05/29/24 15:31 05/29/24 15:31 05/29/24 15:31 05/29/24 15:31 05/29/24 15:31
I&O
05/28/24 05/29/24 05/30/24
06:59 06:59 06:59
Intake Total 1250 / 1250 1200 / 1200
Balance 1250 / 1250 1200 / 1200
Physical Exam
Physical Exam
HEENT: Anicteric
Cardiology: Normal Sinus Rhythm
Pulmonary: Clear
GI: Soft, Tender (RLQ), Normal Bowel Sounds and Other (mildly distended)
Extremities: No Edema
Neuro: Non Focal
[2024-05-29] MEDS: D5/0.45%NSS with KCL 20 MEQ 1000 IV (15:49)
[2024-05-29] MEDS: CYANOCOBALAMIN 1000 MCG IM (15:50)
[2024-05-29] MEDS: TRICOR 145 MG PO (20:54)
[2024-05-29] MEDS: CRESTOR 40 MG PO (20:54)
[2024-05-29] MEDS: NORVASC 10 MG PO (20:54)
[2024-05-29] MEDS: ZESTRIL 40 MG PO (20:54)
[2024-05-29] MEDS: TENORMIN 50 MG PO (20:59)
[2024-05-29 23:01] VITALS: BP 136/75
[2024-05-29] MEDS: DILAUDID 0.25 MG IV (23:39)
[2024-05-30] VITALS (13 sets, daily range): BP systolic 60–142; BP diastolic 56–81
[2024-05-30] MEDS: ZOSYN 50 IV ×4 (01:19→19:36)
[2024-05-30] MEDS: SYNTHROID 88 MCG PO (03:15)
[2024-05-30] MEDS: DILAUDID 0.5 MG IV ×3 (03:15→15:16)
[2024-05-30] MEDS: D5/0.45%NSS with KCL 20 MEQ 1000 IV (03:15)
[2024-05-30 08:08] LABS: % Basophils 0.2 % (0-2); % Eosinophils 2.5 % (0-6); % Immature Granulocytes 0.8 % (0-0.5); % Lymphocytes 6.9 % (20.5-51.1); % Monocytes 5.2 % (1.7-9.3); % Neutrophils 84.4 % (42.2-75.2); Absolute Eosinophils 0.2 10^3/uL (0-0.7); Absolute Immature Granulocytes 0.1 10^3/uL (0-0.05); Absolute Lymphocytes 0.4 10^3/uL (1.2-3.4); Absolute Monocytes 0.3 10^3/uL (0.1-0.6); Hematocrit 29.5 % (37.0-47.0); Hemoglobin 10.4 g/dL (12.0-16.0); Mean Corp Hgb Conc. 35.3 g/dL (33.0-37.0); Mean Corpuscular Hgb 35.6 pg (27.0-31.0); Mean Platelet Volume 9.1 fL (7.4-10.4); Nucleated Red Blood Cells % 0 %; Platelet Count 156 10^3/uL (130-400); Red Blood Cell Count 2.92 10^6/uL (4.20-5.40); Red Cell Dist. Width 13.3 % (11.5-14.5); White Blood Cell Count 5.9 10^3/uL (4.8-10.8)
[2024-05-30] MEDS: HEPARIN 5000 UNITS SC (08:46)
[2024-05-30] MEDS: CYANOCOBALAMIN 1000 MCG IM (08:48)
[2024-05-30] MEDS: NICODERM TRANSDERMAL 14 MG TRANSDERM (08:48)
[2024-05-30 09:53] LABS: Blood Urea Nitrogen 11 mg/dl (7-17); Calcium 8.7 mg/dl (8.4-10.2); Carbon Dioxide 20 mmol/L (22-30); Chloride 105 mmol/L (98-107); Estimated Creatinine Clearance 73 ml/min; Glucose 124 mg/dl (70-99); Potassium 3.5 mmol/L (3.5-5.1); Sodium 134 mmol/L (135-145); eGFR > 60.00
[2024-05-30 09:58] LABS: C-Reactive Protein > 270.00 mg/L (0.0-10.00)
[2024-05-30] MEDS: ATIVAN 0.5 MG IV (11:39)
[2024-05-30] MEDS: NSS (PRESERVATIVE FREE) 0.25 ML IV (11:40)
--- NOTE | 2024-05-30 12:33 | W.PN.HOSP.TC ---
Today's Communication/Plan
-
MRE
Assessment / Plan
Assessment / Plan
# Acute ileitis with possible terminal ileitis. Appears less symptomatic today
-CT abdomen pelvis shows inflammation of distal ileum, collapsed terminal ileum with suspicion for possible terminal ileal stricture
-will allow clear liquids with abd that is softer and less tender
-IV fluids
-Zofran, Dilaudid
-MRI enterography ordered, pt went down for study shortly after seen by me
-GI consulted, input appreciated
Pt started on Zosyn 3.375 IV q6H
Essential hypertension
-Continue amlodipine, atenolol, lisinopril
BP 141/81
Hypothyroidism
-Continue levothyroxine
Vit B-12 defic
noted pt had macrocytic indices, was not anemic on admission
B-12 <159
will start supplement
Hyperlipidemia
-Continue fenofibrate
Active smoker
Full code
DVT prophylaxis�heparin
Anticipated Discharge: > 48 hours
Subjective/Interval History
-
Date of Service: May 30, 2024
very apprehensive over having MRE and what the results will be and then what follows
Objective Data
-
Labs:
Laboratory Results
05/30/24
07:09
WBC 5.9
Hgb 10.4 L
Hct 29.5 L
Plt Count 156
Sodium 134 L
Potassium 3.5
Chloride 105
Carbon Dioxide 20 L
BUN 11
Creatinine 0.8
Glucose 124 H
Calcium 8.7
Vital Signs:
Vital Signs
Temp Pulse Resp BP Pulse Ox
98.9 F 76 20 141/81 93
05/30/24 07:39 05/30/24 07:39 05/30/24 07:39 05/30/24 07:39 05/30/24 07:39
I&O
05/29/24 05/30/24 05/31/24
06:59 06:59 06:59
Intake Total 1200 / 1200 980 / 980
Balance 1200 / 1200 980 / 980
Review of Systems
-
History Source: Patient
Constitutional: Denies Fever
EENT: Reports No Symptoms Reported
Respiratory: Reports No Symptoms; Denies Trouble Breathing
Cardiac: Reports No Symptoms; Denies Chest Pain
Abdomen/GI: Reports Abdominal Pain and Constipated (no stool and very minimal flatus)
Genitourinary: Reports No Symptoms
Physical Exam
-
General: Well Developed, Well Nourished and No Apparent Distress
HEENT: Normocephalic, Atraumatic and Moist Mucous Membranes
Respiratory: Clear to Auscultation; Negative Wheezes, Rales or Rhonchi
Cardiac: Regular Rhythm and S1/S2
GI: Soft, Nondistended, Normal Bowel Sounds (slightly less active today) and Tender (less tender, belly is softer)
Musculoskeletal: No Clubbing, No Cyanosis and No Edema
--- NOTE | 2024-05-30 13:17 | CM ---
Patient switched to inpatient, patient made aware.
Plan; Home when stable.
--- NOTE | 2024-05-30 15:28 | CON.GS ---
Consultation
-
Performing Provider: Salome
Reason for Consultation: Possible appendicitis
Medical History
-
Chief Complaint: Abdominal pain
History of Present Illness:
Patient is a 59-year-old female who was in her usual baseline state of health until Monday morning at approximately 6 AM she took note of a central/upper abdominal pain discomfort. After going to work her abdominal pain continued to increase in
severity and then localized to his lower abdomen followed by right lower quadrant. It became quite severe to the point that she returned home from work and then presented for emergency department evaluation on Monday05/27/2024 for further
evaluation. Initial CT imaging was reported as acute ileitis. She was admitted with bowel rest, IV fluid, empiric antibiotics and GI consultation. Follow-up MR enterography was obtained today. Patient was unable to complete MR enterography the
other day due to vomiting of contrast agent. After today's MRI radiographic imaging was highly suggestive of appendicitis prompting surgical consultation at this time.
Patient continues to have abdominal pain essentially the same may be slightly improved than emergency department but rather persistent for the past few days. She has anorexia and mild nausea but no vomiting. She feels bloated and has not had a
bowel movement. Chronic lower back pain has bothersome for her as well.
Past Medical History
Past Medical History: Other (Hypothyroid, hypertension, hypercholesterolemia, lumbar back pain)
Past Surgical History: None
Social History
Tobacco: Smoker
Drug: None
Family History
Family History: Reviewed & Noncontributory
Allergies / Home Medications
Allergy/AdvReac Type Severity Reaction Status Date / Time
No Known Allergies Allergy Verified 05/27/24 11:05
�Medication �Instructions �Recorded �Confirmed �Type
amlodipine 10 mg tablet 10 mg PO HS Blood Pressure 05/27/24 05/27/24 History
atenolol 50 mg tablet 50 mg PO HS Blood Pressure 05/27/24 05/27/24 History
fenofibrate nanocrystallized 145 145 mg PO HS High Cholesterol 05/27/24 05/27/24 History
mg tablet
levothyroxine 88 mcg tablet 88 mcg PO DAILY Thyroid 05/27/24 05/27/24 History
lisinopril 40 mg tablet 40 mg PO HS Blood Pressure 05/27/24 05/27/24 History
rosuvastatin 40 mg tablet 40 mg PO HS High Cholesterol 05/27/24 05/27/24 History
Review of Systems
-
History Source: Patient
All other systems: Negative unless noted
A 10 point review of systems was completed, and was negative except as per HPI.
Physical Exam
Vital Signs
Temp Pulse Resp BP Pulse Ox
98.9 F 76 20 141/81 93
05/30/24 07:39 05/30/24 07:39 05/30/24 07:39 05/30/24 07:39 05/30/24 07:39
Body Mass Index (BMI) 26.7
Lab Results
05/30/24 07:09
05/30/24 07:09
WBC 5.9 10^3/uL (4.8-10.8) 05/30/24 07:09
Hgb 10.4 g/dL (12.0-16.0) L 05/30/24 07:09
Hct 29.5 % (37.0-47.0) L 05/30/24 07:09
Plt Count 156 10^3/uL (130-400) 05/30/24 07:09
Abs Immat Gran (auto) 0.1 10^3/uL (0-0.05) H 05/30/24 07:09
Neutrophils % 84.4 % (42.2-75.2) H 05/30/24 07:09
Physical Exam
General: Well Developed, Well Nourished and Other (In no acute distress but uncomfortable and acutely ill-appearing)
HEENT: Normocephalic, Anicteric and Moist Mucous Membranes
Respiratory: Non Labored Respirations (Supplemental oxygen via nasal cannula)
Cardiac: Regular Rhythm
GI: Soft, Tender (Localizing to the right lower quadrant with localized voluntary guarding) and Distended
Skin: Warm
Neuro: AO x 3
Psych: Calm
Data Reviewed
-
CT Scan: Image Personally Visualized and interpreted, Discussed with Physician and Discussed with Patient
MRI: Image Personally Visualized and interpreted, Discussed with Physician and Discussed with Patient
Assessment / Plan
-
Assessment: 59-year-old female with acute appendicitis.
CT imaging with dilated tubular structure right lower quadrant with surrounding inflammatory changes and reactive changes of the terminal ileum and cecum in the vicinity highly suggestive of acute appendicitis. MRI imaging similar with tubular
structure right lower quadrant which seems to be the focus of inflammatory changes with reactive ileus and edema.
Reviewed with patient treatment options which would include continued nonoperative management with bowel rest, antibiotics and IV fluids versus consideration of appendectomy. Reviewing medications patient has been on Zosyn since 05/27/2024 and
continues with signs of appendicitis including anorexia, localizing pain and nausea. While there does not appear to be radiographic evidence of perforation advised patient that I would consider her persistent pain, localizing rebound/guarding
despite more than 48 hours of antibiotic therapy a treatment failure for typical response of acute appendicitis and nonoperative management. We did discuss that options would be either to continue with IV antibiotic therapy or consider
appendectomy. Appendectomy may be a bit more challenging as she has had symptoms now for greater than 72 hours but again imaging does not suggest a severe phlegmonous surrounding inflammatory response or new abscess/perforation.
After discussions with patient she wishes to proceed with appendectomy. Laparoscopic appendectomy was reviewed in detail including the operative technique utilizing a diagram and drawing at bedside. We discussed alternative treatment options as
outlined above including nonoperative management. We discussed potential operative findings and their management including the small but potential risk of severe surrounding inflammatory changes to the point of requiring ileocecectomy. We
discussed the typical postoperative recovery pending operative findings. Reviewed benefits of surgery and risks such as but not limited to bleeding, infectious or wound related complications, iatrogenic injury to surrounding viscera. Discussed
possible utilization of a NICKY drain postoperatively for infection control purposes.
Any of the patient's concerns or questions were fully addressed and informed consent was obtained.
Plan: Patient is on the OR schedule for appendectomy today
Continue Zosyn
N.p.o.
Current supportive care pending OR timing/availability which should be in the quite immediate future.
--- NOTE | 2024-05-30 15:42 | W.SUR.PREOP ---
Pre-Operative Surgical Note
-
I have examined this patient prior to the performance of the scheduled procedure.
The patient's condition is unchanged from the time of the current History and
Physical and the patient is able to undergo the scheduled procedure.
--- NOTE | 2024-05-30 15:52 | W.PN.GI.CBS2 ---
Today's Communication / Plan
-
Scheduled for OR today
Assessment / Plan
-
Summary: 59yo female no significant PMH presents with sudden onset epigastric, then diffuse abd pain x 1 day. Denies diarreha, fever, n/v, sick contacts. CT shows circumferential thickening distal ileum with intraluminal stool and minimal upstream
dilation c/w stricture of TI. Denies NSAIDs. No FH IBD or CRC. No prior colonoscopy.
Impression:
Sudden onset diffuse abd pain x 1 day
Thickening distal ileum with minimal upstream dilation, intraluminal stool ('SB feces sign') suggestive of stricture
MRE 05/30
IMPRESSION: The appendix is enlarged, with diameter of 9 mm. The appendix is enhancing with a thickened wall. There is slight enhancement of the adjacent fat suggesting adjacent inflammation. Correlating with recent CT examination, the findings are
highly suggestive of appendicitis.
There is also thickening and enhancement of loops of distal ileum within the right lower abdomen and upper pelvis, and this most likely represents reactive ileitis from appendicitis.
Dilated loops of small bowel extending to the level of the distal ileum, likely representing small bowel obstruction. These dilated loops of small bowel have increased in caliber compared to CT of May 27, 2024.
There is a small amount of free fluid in the pelvic cul-de-sac. Small amount of mesenteric edema. Small amount of fluid in the right upper quadrant adjacent to the liver.
Recommendations:
Surgical consultation reviewed-scheduled for OR today
NPO
Continue IVF
Continue further management as per surgery
Will sign off. Will be available if any questions.
Total Time Spent with Patient (in minutes): 35
Subjective
Subjective
Date of Service: May 30, 2024
Continues to have abdominal pain. An MRE today
Objective
Data Reviewed
Laboratory Data:
Laboratory Results
05/30/24 07:09
05/30/24 07:09
Laboratory Results
Total Bilirubin 1.1 mg/dl (0.2-1.3) 05/28/24 07:13
AST 23 U/L (14-36) 05/28/24 07:13
ALT 16 U/L (0-35) 05/28/24 07:13
Alkaline Phosphatase 36 U/L (38-126) L 05/28/24 07:13
Lipase 120 U/L (23-300) 05/27/24 11:55
Vital Signs and I&O:
Vital Signs
Temp Pulse Resp BP Pulse Ox
98.2 F 80 18 136/74 90
05/30/24 15:27 05/30/24 15:27 05/30/24 15:27 05/30/24 15:27 05/30/24 15:27
I&O
05/29/24 05/30/24 05/31/24
06:59 06:59 06:59
Intake Total 1200 / 1200 980 / 980
Balance 1200 / 1200 980 / 980
Physical Exam
Physical Exam
GI: Soft, Non Distended and Tender (RLQ)
--- NOTE | 2024-05-30 17:37 | W.IMMPOSTOP ---
Addendum entered and electronically signed by Werner Mcmahon MD 05/30/24 18:03:
#[id number]
Original Note:
Surgical Immed Post Op Note
-
Primary Surgeon: Salome
Assisting Surgeon: None
Pre-op Diagnosis: Acute appendicitis, localized peritonitis, ileus
Post-op Diagnosis: Perforated acute appendicitis with large intra-abdominal abscess, localized peritonitis, severe ileus versus small bowel obstruction
Procedure Performed: Laparoscopic appendectomy and washout of intra-abdominal abscess
Anesthesia Type: GETA +0.25% Marcaine
Specimen / Cultures: Appendix/abscess cultures obtained intraoperatively
Estimated Blood Loss: 8 mL
Complications: None immediate
Operative Findings: Right lower quadrant peritonitis. Severely distended proximal small bowel with what appeared to be transition point from distal ileum adherent to large abscess cavity which was all freed up and cleared. NG tube placed by
anesthesia. Aggarwal catheter placed due to severity of acute illness and probable high risk for postoperative urinary retention. Perforated appendicitis with large abscess in the right lower quadrant. Sigmoid colon, distal ileum and its mesentery
walling off large abscess cavity. All of these interloop and inflammatory adhesions/abscess cavities were completely freed and washed out. Laparoscopic appendectomy able to be completed. Base of appendix taken flush with the cecum utilizing Endo
DIONICIO purple 45 mm stapler.
Drains: 19 Tres from left-sided 5 mm trocar site placed in the deep pelvis and right lower quadrant around terminal ileum, abscess cavity which was evacuated and base of cecum.
Plan: Expecting delayed GI recovery/long postoperative course due to severity of complicated appendicitis
NG tube placed for management of expected ongoing ileus
Aggarwal catheter until ambulatory, abdominal distention improving and postoperative pain controlled
Continue Zosyn -await intraoperative culture results
Maintain NICKY likely throughout hospitalization
Patient advised me preoperatively that she did not request I update any immediate family members or friends postoperatively with phone call.
[2024-05-30] MEDS: VENTOLIN NEBULES 2.5 MG INH (18:36)
[2024-05-30] MEDS: NSS 1000 IV (18:39)
[2024-05-30] MEDS: D5/0.45%NSS with KCL 20 MEQ IV (19:54)
[2024-05-30] MEDS: DILAUDID 1 MG IV (21:44)
[2024-05-31] MEDS: NSS 1000 IV ×4 (01:29→22:57)
[2024-05-31] MEDS: ZOSYN 50 IV ×4 (01:30→20:29)
[2024-05-31] MEDS: DILAUDID 1 MG IV ×4 (01:41→23:46)
[2024-05-31 03:34] VITALS: BP 129/65
[2024-05-31 07:36] VITALS: BP 132/72
[2024-05-31] MEDS: CYANOCOBALAMIN 1000 MCG IM (08:50)
[2024-05-31] MEDS: NICODERM TRANSDERMAL 14 MG TRANSDERM (08:51)
[2024-05-31] MEDS: HEPARIN 5000 UNITS SC (09:03)
[2024-05-31 09:37] LABS: Hematocrit 29.5 % (37.0-47.0); Hemoglobin 10.3 g/dL (12.0-16.0); Mean Corp Hgb Conc. 34.9 g/dL (33.0-37.0); Mean Corpuscular Hgb 34.9 pg (27.0-31.0); Platelet Count 192 10^3/uL (130-400); Red Blood Cell Count 2.95 10^6/uL (4.20-5.40); Red Cell Dist. Width 13.6 % (11.5-14.5); White Blood Cell Count 5.4 10^3/uL (4.8-10.8)
--- NOTE | 2024-05-31 09:42 | W.PN.GS2 ---
Today's Communication / Plan
-
`
Assessment / Plan
-
Assessment: 59-year-old female postop day #1 status post laparoscopic appendectomy and washout of intra-abdominal abscesses for complicated acute appendicitis with large intra-abdominal abscess and resultant ileus/pSBO
AFVSS
Overall appears well postoperatively given severity of her illness and more comfortable than yesterday preop
Quite anxious and tearful
Operative cultures -gram-positive cocci, gram-positive rods
Plan: Multimodal analgesic options -affirmative and Dilaudid
Will add Ativan as needed for patient's anxiety
A.m. labs pending -CBC and BMP
Continue with NG tube decompression due to ileus and probable initial obstructive component from abscess cavity with adherent small bowel that was released
Maintain Aggarwal until postoperative day 2
Zosyn
SCDs/Lovenox for VTE prophylaxis
Protonix for GI prophylaxis while NG tube in place
Subjective Data
-
Date of Service: May 31, 2024
Patient seen and examined.
Crying at bedside and quite anxious.
Preoperative abdominal pain improved. Some drain site pain and incisional pain.
No nausea
No flatus, no bowel movements
Objective Data
-
Intake and Output
05/30/24 05/31/24 06/01/24
06:59 06:59 06:59
Intake Total 980 / 980 1800 / 1800
Output Total 925 / 925
Balance 980 / 980 875 / 875
Intake:
IV fluids (Total) 880 / 880 1610 / 1610
NSS 70 / 70
IV piggybacks 100 / 100 100 / 100
Amount instilled into GI Tube ( 90 / 90
Total)
Howell Sump 90 / 90
Output:
Drain Output (Total) 240 / 240
Right Lower Abdomen Dio- 240 / 240
Soares A
Gastrointestinal tube output ( 160 / 160
Total)
Howell Sump 160 / 160
Urine, Aggarwal 525 / 525
Other:
Number of approximated MODERATE 2
amounts of urine
Vital Signs
Temp Pulse Resp BP Pulse Ox
98 F 82 18 132/72 93
05/31/24 07:36 05/31/24 07:36 05/31/24 07:36 05/31/24 07:36 05/31/24 07:36
Lab Results
05/31/24 09:09
Calcium 8.7 mg/dl (8.4-10.2) 05/30/24 07:09
Total Bilirubin 1.1 mg/dl (0.2-1.3) 05/28/24 07:13
AST 23 U/L (14-36) 05/28/24 07:13
ALT 16 U/L (0-35) 05/28/24 07:13
Alkaline Phosphatase 36 U/L (38-126) L 05/28/24 07:13
Total Protein 6.4 g/dl (6.3-8.2) 05/28/24 07:13
Albumin 3.7 g/dl (3.5-5.0) 05/28/24 07:13
Physical Exam
-
Visibly upset and crying but consolable
Abdomen: Softly distended, not tense. Tympanitic. Tenderness palpation at incision sites, suprapubic and right lower quadrant. No significant guarding or rebound.
NICKY with serosanguineous fluid, a bit murky but not nikunj pus.
[2024-05-31 09:47] LABS: Blood Urea Nitrogen 11 mg/dl (7-17); Calcium 8.2 mg/dl (8.4-10.2); Carbon Dioxide 21 mmol/L (22-30); Chloride 105 mmol/L (98-107); Estimated Creatinine Clearance 73 ml/min; Glucose 102 mg/dl (70-99); Potassium 3.6 mmol/L (3.5-5.1); Sodium 135 mmol/L (135-145); eGFR > 60.00
[2024-05-31] MEDS: PROTONIX IV 40 MG IV (11:15)
[2024-05-31] MEDS: NSS (PRESERVATIVE FREE) 10 ML IV (11:16)
--- NOTE | 2024-05-31 11:37 | W.PN.HOSP.TC ---
Today's Communication/Plan
-
continue NG decompression
Assessment / Plan
Assessment / Plan
# Acute ileitis with possible terminal ileitis. Appears less symptomatic today
-CT abdomen pelvis shows inflammation of distal ileum, collapsed terminal ileum with suspicion for possible terminal ileal stricture
-IV fluids, adjusted as per surgery
-Zofran, Dilaudid
-MRI enterography:The appendix is enlarged, with diameter of 9 mm. The appendix is enhancing with a thickened wall. There is slight enhancement of the adjacent fat suggesting adjacent inflammation. Correlating with recent CT examination, the
findings are highly suggestive of appendicitis.
-GI consulted, input appreciated
Reviewed with Dr. Mcmahon
pt underwent appendectomy 05/30
Pt started on Zosyn 3.375 IV q6H 05/27 and continuing
NG decompression
Essential hypertension
-oral antiHTN: amlodipine, atenolol, lisinopril, on hold with pt NPO
BP 141/81
Hypothyroidism
-Continue levothyroxine
Vit B-12 defic
noted pt had macrocytic indices, was not anemic on admission
B-12 <159
will start supplement
Hyperlipidemia
-Continue fenofibrate
Active smoker
Full code
DVT prophylaxis�Lovenox
Anticipated Discharge: > 48 hours
Subjective/Interval History
-
Date of Service: May 31, 2024
Awake, alert, no flatus yet
Objective Data
-
Labs:
Laboratory Results
05/31/24
09:09
WBC 5.4
Hgb 10.3 L
Hct 29.5 L
Plt Count 192 D
Sodium 135
Potassium 3.6
Chloride 105
Carbon Dioxide 21 L
BUN 11
Creatinine 0.8
Glucose 102 H
Calcium 8.2 L
Vital Signs:
Vital Signs
Temp Pulse Resp BP Pulse Ox
98 F 82 18 132/72 93
05/31/24 07:36 05/31/24 07:36 05/31/24 07:36 05/31/24 07:36 05/31/24 07:36
I&O
05/30/24 05/31/24 06/01/24
06:59 06:59 06:59
Intake Total 980 / 980 1800 / 1800
Output Total 925 / 925
Balance 980 / 980 875 / 875
Review of Systems
-
History Source: Patient and Physician (reviewed with Dr. Mcmahon)
Constitutional: Denies Fever
EENT: Reports No Symptoms Reported and Other (NG tube in place)
Respiratory: Reports No Symptoms; Denies Trouble Breathing
Cardiac: Reports No Symptoms; Denies Chest Pain
Abdomen/GI: Reports Abdominal Pain (post op)
Genitourinary: Reports No Symptoms
Physical Exam
-
General: Well Developed, Well Nourished and No Apparent Distress
HEENT: Normocephalic, Atraumatic, Moist Mucous Membranes and Other (no flattening of tongue papilla)
Respiratory: Clear to Auscultation; Negative Wheezes, Rales or Rhonchi
Cardiac: Regular Rhythm and S1/S2
GI: Soft, Nondistended and Tender (post op); Negative Normal Bowel Sounds
Musculoskeletal: No Clubbing, No Cyanosis and No Edema
--- NOTE | 2024-05-31 14:29 | CM ---
Chart reviewed and patient is now inpatient, patient aware and plan remains for patient to return to home when stable.
Plan; Home alone when stable.
[2024-05-31 15:42] VITALS: BP 148/76
[2024-05-31 16:35] VITALS: BMI 26.7
[2024-05-31] MEDS: LOVENOX 40 MG SC (17:35)
[2024-05-31 19:39] VITALS: BP 159/79
[2024-05-31] MEDS: ATIVAN 0.5 MG IV (20:26)
[2024-05-31] MEDS: NSS (PRESERVATIVE FREE) 0.25 ML IV (20:28)
[2024-05-31 23:31] VITALS: BP 159/80
[2024-06-01] MEDS: ZOSYN 50 IV ×4 (01:38→20:31)
[2024-06-01] MEDS: DILAUDID 1 MG IV ×5 (02:29→20:39)
[2024-06-01 03:07] VITALS: BP 164/82
--- NOTE | 2024-06-01 06:00 | PTCARENOTE ---
Aggarwal catheter d/c'ed, pt. due to void in 6 hours.
[2024-06-01 07:30] VITALS: BP 170/87
[2024-06-01 09:01] LABS: Hematocrit 30.2 % (37.0-47.0); Hemoglobin 10.5 g/dL (12.0-16.0); Mean Corp Hgb Conc. 34.8 g/dL (33.0-37.0); Mean Corpuscular Hgb 34.7 pg (27.0-31.0); Mean Corpuscular Volume 99.7 fL (81.0-99.0); Mean Platelet Volume 8.8 fL (7.4-10.4); Platelet Count 208 10^3/uL (130-400); Red Blood Cell Count 3.03 10^6/uL (4.20-5.40); Red Cell Dist. Width 13.7 % (11.5-14.5); White Blood Cell Count 5.2 10^3/uL (4.8-10.8)
[2024-06-01] MEDS: ATIVAN 0.5 MG IV (09:12)
[2024-06-01] MEDS: NSS (PRESERVATIVE FREE) 0.25 ML IV (09:12)
[2024-06-01] MEDS: NICODERM TRANSDERMAL 14 MG TRANSDERM (09:14)
[2024-06-01] MEDS: NSS (PRESERVATIVE FREE) 10 ML IV (09:14)
[2024-06-01] MEDS: PROTONIX IV 40 MG IV (09:14)
[2024-06-01] MEDS: CYANOCOBALAMIN 1000 MCG IM (09:14)
[2024-06-01 09:25] LABS: Blood Urea Nitrogen 10 mg/dl (7-17); Calcium 8.3 mg/dl (8.4-10.2); Carbon Dioxide 22 mmol/L (22-30); Chloride 106 mmol/L (98-107); Estimated Creatinine Clearance 83 ml/min; Glucose 80 mg/dl (70-99); Potassium 2.9 mmol/L (3.5-5.1); Sodium 136 mmol/L (135-145); eGFR > 60.00
--- NOTE | 2024-06-01 11:03 | W.PN.HOSP.TC ---
Today's Communication/Plan
-
adjust IVF to include KCL
start IV Synthroid
continue NG decompression
continue Zosyn
Continue IV Protonix
Assessment / Plan
Assessment / Plan
# Acute ileitis with possible terminal ileitis. Appears less symptomatic today
-CT abdomen pelvis shows inflammation of distal ileum, collapsed terminal ileum with suspicion for possible terminal ileal stricture
-IV fluids, adjusted as per surgery
-Zofran, Dilaudid
-MRI enterography:The appendix is enlarged, with diameter of 9 mm. The appendix is enhancing with a thickened wall. There is slight enhancement of the adjacent fat suggesting adjacent inflammation. Correlating with recent CT examination, the
findings are highly suggestive of appendicitis.
-GI consulted, input appreciated
Reviewed with Dr. Mcmahon on 05/31
pt underwent appendectomy 05/30
Pt started on Zosyn 3.375 IV q6H 05/27 and continuing
NG decompression, still with post op ileus
Essential hypertension
-oral antiHTN: amlodipine, atenolol, lisinopril, on hold with pt NPO
BP starting to creep up, most recently 170/87, will order IV Hydralazine
Hypokalemia
will write for IV supplement
Hypothyroidism
-Continue levothyroxine, will start on IV 60 mcg qday
Vit B-12 defic
noted pt had macrocytic indices, was not anemic on admission
B-12 <159
will start supplement
Hyperlipidemia
-Continue fenofibrate
Active smoker
Full code
DVT prophylaxis�Lovenox
Anticipated Discharge: > 48 hours
Subjective/Interval History
-
Date of Service: June 01, 2024
Remains very apprehensive, though pain has persisted, may be somewhat lessened
Objective Data
-
Labs:
Laboratory Results
06/01/24 06/01/24
08:17 08:18
WBC 5.2
Hgb 10.5 L
Hct 30.2 L
Plt Count 208
Sodium 136
Potassium 2.9 L
Chloride 106
Carbon Dioxide 22
BUN 10
Creatinine 0.7
Glucose 80
Calcium 8.3 L
Vital Signs:
Vital Signs
Temp Pulse Resp BP Pulse Ox
98.5 F 89 18 170/87 92
06/01/24 07:30 06/01/24 07:30 06/01/24 07:30 06/01/24 07:30 06/01/24 07:30
I&O
05/31/24 06/01/24 06/02/24
06:59 06:59 06:59
Intake Total 1800 / 1800 1200 / 1200
Output Total 925 / 925 1210 / 1210
Balance 875 / 875 -10 / -10
Review of Systems
-
History Source: Patient
Constitutional: Denies Fever
EENT: Reports No Symptoms Reported and Other (NG tube in place)
Respiratory: Reports No Symptoms; Denies Trouble Breathing
Cardiac: Reports No Symptoms; Denies Chest Pain
Abdomen/GI: Reports Abdominal Pain (post op, still with significant pain)
Genitourinary: Reports No Symptoms
Physical Exam
-
General: Well Developed, Well Nourished and No Apparent Distress
HEENT: Normocephalic, Atraumatic, Moist Mucous Membranes and Other (no flattening of tongue papilla)
Respiratory: Clear to Auscultation; Negative Wheezes, Rales or Rhonchi
Cardiac: Regular Rhythm and S1/S2
GI: Soft, Nondistended and Tender (post op); Negative Normal Bowel Sounds (minimal scattered BS noted (was totally absent yesterday))
Musculoskeletal: No Clubbing, No Cyanosis and No Edema
[2024-06-01] MEDS: NSS IV (11:24)
[2024-06-01] MEDS: D5/0.45%NSS with KCL 40 MEQ 1000 IV ×2 (11:42→23:36)
--- NOTE | 2024-06-01 12:52 | W.PN.GS2 ---
Today's Communication / Plan
-
-- No major changes from surgical perspective, awaiting return of bowel function
Assessment / Plan
-
Assessment: 59-year-old female POD#2 status post laparoscopic appendectomy and washout of intra-abdominal abscesses for complicated acute appendicitis with large intra-abdominal abscess and resultant ileus/pSBO
AFVSS
Operative cultures -gram-positive cocci, gram-positive rods
Awaiting ROBF
No major changes from a surgical perspective
Plan:
-- NPO, IVF, NGT decompression
-- Multimodal analgesic options -affirmative and Dilaudid
-- Ativan as needed for patient's anxiety
-- DC Aggarwal
-- Abx: Zosyn
-- SCDs/Lovenox for VTE prophylaxis
-- Protonix for GI prophylaxis while NG tube in place
Subjective Data
-
Date of Service: June 01, 2024
Denies worsening abdominal pain. No nausea or vomiting. No flatus or BM. No fevers. Emotional and teary.
Objective Data
-
Intake and Output
05/31/24 06/01/24 06/02/24
06:59 06:59 06:59
Intake Total 1800 / 1800 1200 / 1200
Output Total 925 / 925 1210 / 1210
Balance 875 / 875 -10 / -10
Intake:
Oral fluids 0 / 0
IV fluids (Total) 1610 / 1610 1100 / 1100
NSS 70 / 70
IV piggybacks 100 / 100 100 / 100
Amount instilled into GI Tube ( 90 /
Total)
[place] Sump 90 / 90
Output:
Drain Output (Total) 240 / 240 110 / 110
Left Lower Abdomen Dio- 85 / 85
Soares
Right Lower Abdomen Dio- 240 / 240 25 / 25
Soares A
Gastrointestinal tube output ( 160 / 160 100 / 100
Total)
[place] Sump 160 / 160 100 / 100
Urine, Agg[place]wal 525 / 525 1000 / 1000
Vital Signs
Temp Pulse Resp BP Pulse Ox
98.5 F 89 18 170/87 92
06/01/24 07:30 06/01/24 07:30 06/01/24 07:30 06/01/24 07:30 06/01/24 07:30
Lab Results
06/01/24 08:17
06/01/24 08:18
Calcium 8.3 mg/dl (8.4-10.2) L 06/01/24 08:18
Total Bilirubin 1.1 mg/dl (0.2-1.3) 05/28/24 07:13
AST 23 U/L (14-36) 05/28/24 07:13
ALT 16 U/L (0-35) 05/28/24 07:13
Alkaline Phosphatase 36 U/L (38-126) L 05/28/24 07:13
Total Protein 6.4 g/dl (6.3-8.2) 05/28/24 07:13
Albumin 3.7 g/dl (3.5-5.0) 05/28/24 07:13
Physical Exam
-
Gen: NAD
HEENT: minimal non-bilious outputs
Abd: soft, tender to palpation, mild/moderate distension, non-peritoneal, incisions c/d/i - no erythema, ecchymosis, or drainage, NICKY serous with minimal purulent/fibrinous debris
[2024-06-01 15:12] VITALS: BP 162/76
[2024-06-01] MEDS: DILAUDID 0.5 MG IV (16:58)
[2024-06-01] MEDS: LOVENOX 40 MG SC (16:59)
[2024-06-01] MEDS: LEVOTHROID 60 MCG IV (18:41)
[2024-06-01 23:14] VITALS: BP 170/93
[2024-06-01] MEDS: APRESOLINE 5 MG IV (23:37)
[2024-06-02] MEDS: DILAUDID 1 MG IV ×5 (00:21→22:05)
[2024-06-02] MEDS: ZOSYN 50 IV ×4 (01:25→20:09)
[2024-06-02 03:42] VITALS: BP 175/93
[2024-06-02 04:00] VITALS: BP 176/92
[2024-06-02 05:53] VITALS: BP 157/90
[2024-06-02] MEDS: APRESOLINE 5 MG IV ×2 (05:55→22:14)
[2024-06-02 06:44] LABS: Hematocrit 30.1 % (37.0-47.0); Hemoglobin 10.6 g/dL (12.0-16.0); Mean Corp Hgb Conc. 35.2 g/dL (33.0-37.0); Mean Corpuscular Hgb 34.4 pg (27.0-31.0); Mean Corpuscular Volume 97.7 fL (81.0-99.0); Mean Platelet Volume 8.7 fL (7.4-10.4); Platelet Count 229 10^3/uL (130-400); Red Blood Cell Count 3.08 10^6/uL (4.20-5.40); Red Cell Dist. Width 13.6 % (11.5-14.5)
[2024-06-02 06:57] LABS: Blood Urea Nitrogen 6 mg/dl (7-17); Calcium 8.4 mg/dl (8.4-10.2); Carbon Dioxide 25 mmol/L (22-30); Chloride 103 mmol/L (98-107); Estimated Creatinine Clearance 83 ml/min; Glucose 130 mg/dl (70-99); Magnesium 1.8 mg/dl (1.6-2.3); Potassium 3.3 mmol/L (3.5-5.1); Sodium 134 mmol/L (135-145); eGFR > 60.00
[2024-06-02 07:00] VITALS: BP 176/94
[2024-06-02] MEDS: PROTONIX IV 40 MG IV (07:58)
[2024-06-02] MEDS: NSS (PRESERVATIVE FREE) 10 ML IV (07:58)
[2024-06-02] MEDS: CYANOCOBALAMIN 1000 MCG IM (07:59)
[2024-06-02] MEDS: NICODERM TRANSDERMAL 14 MG TRANSDERM (08:03)
[2024-06-02] MEDS: D5/0.45%NSS with KCL 40 MEQ 1000 IV ×2 (08:10→22:14)
[2024-06-02 08:39] LABS: % Basophils 0.4 % (0-2); % Eosinophils 4.6 % (0-6); % Immature Granulocytes 5.4 % (0-0.5); % Lymphocytes 12.1 % (20.5-51.1); % Monocytes 11.1 % (1.7-9.3); % Neutrophils 66.4 % (42.2-75.2); Absolute Eosinophils 0.2 10^3/uL (0-0.7); Absolute Immature Granulocytes 0.3 10^3/uL (0-0.05); Absolute Lymphocytes 0.6 10^3/uL (1.2-3.4); Absolute Monocytes 0.6 10^3/uL (0.1-0.6); Absolute Neutrophils 3.3 10^3/uL (1.4-6.5); Nucleated Red Blood Cells % 0 %
--- NOTE | 2024-06-02 10:18 | W.PN.GS2 ---
Addendum entered and electronically signed by Delta Hoyt MD 06/02/24 12:54:
Patient seen and examined.
No other complaints. Pain overall well-controlled. No flatus or BM. Denies nausea or vomiting.
Gen: NAD
HEENT: minimal clear output
Abd: soft, mild to moderate tenderness, distention, tympany, nonperitoneal, incisions c/d/i, NICKY drain serous
59-year-old female POD#3 status post laparoscopic appendectomy and washout of intra-abdominal abscesses for complicated acute appendicitis with large intra-abdominal abscess and resultant ileus/pSBO
No major changes. Plan for abdominal x-ray to confirm NGT placement and assess degree of bowel distention. Awaiting return of bowel function prior to NGT removal.
Original Note:
Today's Communication / Plan
-
abdominal xray
continue ngt
Assessment / Plan
-
Assessment: 59-year-old female POD#3 status post laparoscopic appendectomy and washout of intra-abdominal abscesses for complicated acute appendicitis with large intra-abdominal abscess and resultant ileus/pSBO
AFVSS
Operative cultures -gram-positive cocci, gram-positive rods
Awaiting ROBF
No major changes from a surgical perspective
Plan:
-- NPO, IVF, NGT decompression - Abdominal xray ordered to check placement given lack of output/distention
-- Multimodal analgesic options -affirmative and Dilaudid
-- Ativan as needed for patient's anxiety
-- Abx: Zosyn
-- SCDs/Lovenox for VTE prophylaxis
-- Protonix for GI prophylaxis while NG tube in place
Subjective Data
-
Date of Service: June 02, 2024
Patient states she feels 'okay'. She has had no flatus or bowel movements. Her pain is controlled.
Objective Data
-
Intake and Output
0706/02/24 06/03/24
06:59 06:59 06:59
Intake Total 1200 / 1200 2700 / 2700
Output Total 1210 / 1210 1345 / 1345
Balance -10 / -10 1355 / 1355
Intake:
Oral fluids 0 / 0
IV fluids (Total) 1100 / 1100 2350 / 2350
IV piggybacks 100 / 100 200 / 200
Amount instilled into GI Tube ( 150 / 150
Total)
[place] Sump 150 / 150
Output:
Drain Output (Total) 110 / 110 265 / 265
Left Lower Abdomen Dio- 85 / 85 265 / 265
Soares
Right Lower Abdomen Dio- 25 / 25
Soares A
Gastrointestinal tube output ( 100 / 100 480 / 480
Total)
[place] Sump 100 / 100 480 / 480
Urine, Aggarwal 1000 / 1000
Urine, Voided 600 / 600
Other:
Number of approximated SMALL 1
amounts of urine
Number of approximated MODERATE 2
amounts of urine
Number of approximated LARGE 1
amounts of urine
Vital Signs
Temp Pulse Resp BP Pulse Ox
97.4 F 84 20 176/94 95
06/02/24 07:00 06/02/24 07:00 06/02/24 07:00 06/02/24 07:00 06/02/24 07:00
Lab Results
06/02/24 06:01
06/02/24 06:01
Calcium 8.4 mg/dl (8.4-10.2) 06/02/24 06:01
Magnesium 1.8 mg/dl (1.6-2.3) 06/02/24 06:01
Total Bilirubin 1.1 mg/dl (0.2-1.3) 05/28/24 07:13
AST 23 U/L (14-36) 05/28/24 07:13
ALT 16 U/L (0-35) 05/28/24 07:13
Alkaline Phosphatase 36 U/L (38-126) L 05/28/24 07:13
Total Protein 6.4 g/dl (6.3-8.2) 05/28/24 07:13
Albumin 3.7 g/dl (3.5-5.0) 05/28/24 07:13
Physical Exam
-
Gen: NAD
HEENT: minimal non-bilious outputs
Abd: soft, tender to palpation, moderate distension, non-peritoneal, incisions c/d/i - no erythema, ecchymosis, or drainage, NICKY serous
--- NOTE | 2024-06-02 12:46 | W.PN.HOSP.TC ---
Today's Communication/Plan
-
add Catapress TTS
continue prn Hydralazine
continue IVF with K supplement
follow labs
Assessment / Plan
Assessment / Plan
# Acute appendicitis
POD#3
-CT abdomen pelvis shows inflammation of distal ileum, collapsed terminal ileum with suspicion for possible terminal ileal stricture
-Zofran, Dilaudid
-MRI enterography:The appendix is enlarged, with diameter of 9 mm. The appendix is enhancing with a thickened wall. There is slight enhancement of the adjacent fat suggesting adjacent inflammation. Correlating with recent CT examination, the
findings are highly suggestive of appendicitis.
-GI consulted, input appreciated
pt underwent appendectomy 05/30
Pt started on Zosyn 3.375 IV q6H 05/27 and continuing
NG decompression, still with post op ileus, though appears to be resolving
Surgery ordered KUB to confirm NG tube in correct location
Essential hypertension
-oral antiHTN: amlodipine, atenolol, lisinopril, on hold with pt NPO
BP starting to creep up, most recently 157/90-176/94, ordered IV Hydralazine prn, will start on Catapress TTS until pt able to resume oral antiHTN Rx
Hypokalemia
better 3.6-->2.9-->3.3
will continue for IV supplement
Hypothyroidism
-Continue levothyroxine, will start on IV 60 mcg qday until able to take oral (75% of oral dose to be given IV)
Vit B-12 defic
noted pt had macrocytic indices, was not anemic on admission
B-12 <159
will continue supplement
Hyperlipidemia
-pt currently NPO
Active smoker
remains on Nicoderm
Full code
DVT prophylaxis�Lovenox
Anticipated Discharge: > 48 hours
Subjective/Interval History
-
Date of Service: June 02, 2024
Abdominal pain has lessened, not yet producing flatus
Objective Data
-
Labs:
Laboratory Results
06/02/24
06:01
WBC 5.0
Hgb 10.6 L
Hct 30.1 L
Plt Count 229
Sodium 134 L
Potassium 3.3 L
Chloride 103
Carbon Dioxide 25
BUN 6 L
Creatinine 0.7
Glucose 130 H
Calcium 8.4
Vital Signs:
Vital Signs
Temp Pulse Resp BP Pulse Ox
97.4 F 84 20 176/94 95
06/02/24 07:00 06/02/24 07:00 06/02/24 07:00 06/02/24 07:00 06/02/24 07:00
I&O
06/01/24 06/02/24 06/03/24
06:59 06:59 06:59
Intake Total 1200 / 1200 2700 / 2700
Output Total 1210 / 1210 1345 / 1345 70 / 70
Balance -10 / -10 1355 / 1355 -70 / -70
Review of Systems
-
History Source: Patient
Constitutional: Denies Fever
EENT: Reports No Symptoms Reported and Other (NG tube in place)
Respiratory: Reports No Symptoms; Denies Trouble Breathing
Cardiac: Reports No Symptoms; Denies Chest Pain
Abdomen/GI: Reports Abdominal Pain (post op, starting to lessen in intensity)
Genitourinary: Reports No Symptoms
Physical Exam
-
General: Well Developed, Well Nourished and No Apparent Distress
HEENT: Normocephalic, Atraumatic, Moist Mucous Membranes and Other (no flattening of tongue papilla)
Respiratory: Clear to Auscultation; Negative Wheezes, Rales or Rhonchi
Cardiac: Regular Rhythm and S1/S2
GI: Soft, Nondistended, Normal Bowel Sounds (has become more ctve pst 24 hrs) and Tender (post op)
Musculoskeletal: No Clubbing, No Cyanosis and No Edema
--- NOTE | 2024-06-02 13:21 | CM ---
Patient seen, reports no needs to CM at this time. Patient with NG tube. CM will continue to follow for all discharge planning needs.
Plan; home no needs anticipated.
[2024-06-02] MEDS: CATAPRES-TTS-1 0.1 MG TRANSDERM (13:23)
[2024-06-02 15:00] VITALS: BP 174/99
[2024-06-02] MEDS: LEVOTHROID 60 MCG IV (17:35)
[2024-06-02] MEDS: LOVENOX 40 MG SC (17:36)
--- NOTE | 2024-06-02 19:30 | PTCARENOTE ---
Addendum entered by Trevon Ortega RN 06/03/24 06:29:
Pt still with no complaints of nausea and vomiting at this time
Original Note:
Pt disconnected from suction to ambulate to bathroom. When RN returned, pt stated the NG tube just fell out. Pt had not had much output during the day. No complaints of nausea or vomiting throughout the day, just bloating. Pt had also had return
of flatulence today, and is with good bowel sounds. [facility] and colorectal notified. Both state that it is ok to leave out for now. Will continue to monitor closely.
[2024-06-02 22:37] VITALS: BP 177/109
[2024-06-03] MEDS: ZOSYN 50 IV ×4 (01:01→20:47)
[2024-06-03 01:09] VITALS: BP 169/96
[2024-06-03] MEDS: APRESOLINE 5 MG IV ×2 (04:45→23:40)
[2024-06-03] MEDS: DILAUDID 1 MG IV ×2 (04:50→18:51)
[2024-06-03 07:00] VITALS: BP 123/99
[2024-06-03] MEDS: CYANOCOBALAMIN 1000 MCG IM (08:10)
[2024-06-03] MEDS: PROTONIX IV 40 MG IV (08:11)
[2024-06-03] MEDS: NSS (PRESERVATIVE FREE) 10 ML IV (08:11)
[2024-06-03] MEDS: NICODERM TRANSDERMAL 14 MG TRANSDERM (08:12)
[2024-06-03] MEDS: ATIVAN 0.5 MG IV ×3 (08:18→21:12)
--- NOTE | 2024-06-03 10:37 | CM ---
Chart reviewed and plan is to home when stable.
Plan; Home when stable.
--- NOTE | 2024-06-03 10:42 | W.PN.GS2 ---
Today's Communication / Plan
-
PICC line access
Plan to start TPN and nutrition consult
Assessment / Plan
-
Assessment: 59-year-old female status post laparoscopic appendectomy and washout of intra-abdominal abscesses for complicated acute appendicitis with large intra-abdominal abscess and resultant ileus/pSBO
Operative cultures -gram-positive cocci, gram-positive rods
Awaiting return of bowel function
No major changes from a surgical perspective
Plan:
- NPO, IVF
- PICC line and plan to start TPN, consulted nutrition
- Continue pain control with IV Dilaudid
- Ativan as needed for patient's anxiety
- Continue Abx: IV Zosyn
-- SCDs/Lovenox for VTE prophylaxis
-- Protonix for GI prophylaxis while NG tube in place
Time Spent
Total Time Spent with Patient (in minutes): 15
Subjective Data
-
Date of Service: June 03, 2024
Interval Events:
ongoing mild abdominal pain. Denies Nausea/Vomiting. No fevers. NO STOOLS as of now.
Objective Data
-
Intake and Output
06/02/24 06/03/24 06/04/24
06:59 06:59 06:59
Intake Total 2700 / 2700 1480 / 1480
Output Total 1345 / 1345 285 / 285
Balance 1355 / 1355 1195 / 1195
Intake:
Oral fluids 480 / 480
IV fluids (Total) 2350 / 2350 1000 / 1000
IV piggybacks 200 / 200
Amount instilled into GI Tube ( 150 / 150
Total)
[place] Sump 150 / 150
Output:
Drain Output (Total) 265 / 265 285 / 285
Left Lower Abdomen Dio- 265 / 265 285 / 285
Soares
Gastrointestinal tube output ( 480 / 480
Total)
[place] Sump 480 / 480
Urine, Voided 600 / 600
Other:
Number of approximated SMALL 1 1
amounts of urine
Number of approximated MODERATE 2 4
amounts of urine
Number of approximated LARGE 1
amounts of urine
Vital Signs
Temp Pulse Resp BP Pulse Ox
98.2 F 87 20 123/99 94
06/03/24 07:00 06/03/24 07:00 06/03/24 07:00 06/03/24 07:00 06/03/24 07:00
Lab Results
06/02/24 06:01
06/02/24 06:01
Calcium 8.4 mg/dl (8.4-10.2) 06/02/24 06:01
Magnesium 1.8 mg/dl (1.6-2.3) 06/02/24 06:01
Total Bilirubin 1.1 mg/dl (0.2-1.3) 05/28/24 07:13
AST 23 U/L (14-36) 05/28/24 07:13
ALT 16 U/L (0-35) 05/28/24 07:13
Alkaline Phosphatase 36 U/L (38-126) L 05/28/24 07:13
Total Protein 6.4 g/dl (6.3-8.2) 05/28/24 07:13
Albumin 3.7 g/dl (3.5-5.0) 05/28/24 07:13
Physical Exam
-
GENERAL/NEURO: Awake, Alert, no distress
CHEST: Unlabored breathing on RA
ABDOMEN: Soft, Non-Tender, some Distension, surgical incisions clean dry and intact.
[2024-06-03] MEDS: D5/0.45%NSS with KCL 40 MEQ 1000 IV (12:30)
[2024-06-03 13:20] LABS: Hematocrit 33.2 % (37.0-47.0); Hemoglobin 11.8 g/dL (12.0-16.0); Mean Corp Hgb Conc. 35.5 g/dL (33.0-37.0); Mean Corpuscular Hgb 34.2 pg (27.0-31.0); Mean Corpuscular Volume 96.2 fL (81.0-99.0); Mean Platelet Volume 8.8 fL (7.4-10.4); Platelet Count 274 10^3/uL (130-400); Red Blood Cell Count 3.45 10^6/uL (4.20-5.40); Red Cell Dist. Width 13.9 % (11.5-14.5); White Blood Cell Count 5.5 10^3/uL (4.8-10.8)
[2024-06-03 13:35] LABS: Blood Urea Nitrogen 4 mg/dl (7-17); Calcium 8.8 mg/dl (8.4-10.2); Carbon Dioxide 22 mmol/L (22-30); Chloride 105 mmol/L (98-107); Estimated Creatinine Clearance 83 ml/min; Glucose 121 mg/dl (70-99); Potassium 3.8 mmol/L (3.5-5.1); Sodium 133 mmol/L (135-145); eGFR > 60.00
--- NOTE | 2024-06-03 13:43 | W.PN.HOSP.TC ---
Today's Communication/Plan
-
NPO
PICC line for TPN
Nutrition consult
f/u cultures
abx
Assessment / Plan
Assessment / Plan
# Acute appendicitis
POD#4
-CT abdomen pelvis shows inflammation of distal ileum, collapsed terminal ileum with suspicion for possible terminal ileal stricture
-Zofran, Dilaudid
-MRI enterography:The appendix is enlarged, with diameter of 9 mm. The appendix is enhancing with a thickened wall. There is slight enhancement of the adjacent fat suggesting adjacent inflammation. Correlating with recent CT examination, the
findings are highly suggestive of appendicitis.
-GI consulted, input appreciated
pt underwent appendectomy 05/30
Pt started on Zosyn 3.375 IV q6H 05/27 and continuing
NG decompression, still with post op ileus, though appears to be resolving
Surgery ordered KUB to confirm NG tube in correct location
#Severe Adynamic Ileus
-NGT came out yesterday
-NPO
-PICC line for TPN
-Nutrition consult
#Hyponatremia
-mild
-ctm
Essential hypertension
-oral antiHTN: amlodipine, atenolol, lisinopril, on hold with pt NPO
IV Hydralazine prn,
-Added Catapress TTS until pt able to resume oral antiHTN Rx
Hypokalemia
monitor and replete
Hypothyroidism
-Continue levothyroxine, will start on IV 60 mcg qday until able to take oral (75% of oral dose to be given IV)
Vit B-12 defic
noted pt had macrocytic indices, was not anemic on admission
B-12 <159
will continue supplement
Hyperlipidemia
-pt currently NPO
Active smoker
remains on Nicoderm
Full code
DVT prophylaxis�Lovenox
Anticipated Discharge: > 48 hours
Subjective/Interval History
-
Date of Service: June 03, 2024
pasing gas, no bms - severe adynamic ileus on imaging
Objective Data
-
Labs:
Laboratory Results
06/03/24
13:05
WBC 5.5
Hgb 11.8 L
Hct 33.2 L
Plt Count 274
Sodium 133 L
Potassium 3.8
Chloride 105
Carbon Dioxide 22
BUN 4 L
Creatinine 0.7
Glucose 121 H
Calcium 8.8
Vital Signs:
Vital Signs
Temp Pulse Resp BP Pulse Ox
98.2 F 87 20 123/99 94
06/03/24 07:00 06/03/24 07:00 06/03/24 07:00 06/03/24 07:00 06/03/24 07:00
I&O
06/02/24 06/03/24 06/04/24
06:59 06:59 06:59
Intake Total 2700 / 2700 1480 / 1480
Output Total 1345 / 1345 285 / 285
Balance 1355 / 1355 1195 / 1195
Review of Systems
-
History Source: Patient
Constitutional: Denies Fever
EENT: Reports No Symptoms Reported and Other (NG tube in place)
Respiratory: Reports No Symptoms; Denies Trouble Breathing
Cardiac: Reports No Symptoms; Denies Chest Pain
Abdomen/GI: Reports Abdominal Pain (post op, starting to lessen in intensity)
Genitourinary: Reports No Symptoms
Physical Exam
-
General: Well Developed, Well Nourished and No Apparent Distress
HEENT: Normocephalic, Atraumatic, Moist Mucous Membranes and Other (no flattening of tongue papilla)
Respiratory: Clear to Auscultation; Negative Wheezes, Rales or Rhonchi
Cardiac: Regular Rhythm and S1/S2
GI: Soft, Nondistended, Normal Bowel Sounds (has become more ctve pst 24 hrs) and Tender (post op)
Musculoskeletal: No Clubbing, No Cyanosis and No Edema
Data Reviewed
-
Diagnostic Radiology: Image personally visualized and interpreted and Report Reviewed by me
Labs: Labs Reviewed by me
[2024-06-03] MEDS: D5/0.45%NSS with KCL 40 MEQ IV (14:16)
[2024-06-03 15:00] VITALS: BP 171/98
[2024-06-03] MEDS: D5/0.45%NACL 1000 IV (16:20)
[2024-06-03] MEDS: LEVOTHROID 60 MCG IV (18:52)
[2024-06-03] MEDS: LOVENOX 40 MG SC (18:52)
--- NOTE | 2024-06-03 19:08 | VATNOTE ---
06/03 Spoke with Radiologist, advised to pull 3cm out and x ray for final picc placement confirmation. conversation via [employer].
--- NOTE | 2024-06-03 19:28 | VATNOTE ---
pulled right picc out 3 cm per instruction radiolgist via TT with previous VAT RN , Sis Castellanos Awaiting repeat CXR for TPN tonight.
[2024-06-03] MEDS: NSS (PRESERVATIVE FREE) 0.25 ML IV (21:11)
[2024-06-03 23:00] VITALS: BP 163/98
[2024-06-04] MEDS: ZOSYN 50 IV ×4 (02:50→20:18)
[2024-06-04 02:57] VITALS: BP 174/93
[2024-06-04 05:05] LABS: Hematocrit 32.4 % (37.0-47.0); Hemoglobin 11.5 g/dL (12.0-16.0); Mean Corp Hgb Conc. 35.5 g/dL (33.0-37.0); Mean Corpuscular Hgb 35.2 pg (27.0-31.0); Mean Corpuscular Volume 99.1 fL (81.0-99.0); Mean Platelet Volume 9.1 fL (7.4-10.4); Platelet Count 270 10^3/uL (130-400); Red Blood Cell Count 3.27 10^6/uL (4.20-5.40); Red Cell Dist. Width 13.6 % (11.5-14.5); White Blood Cell Count 5.5 10^3/uL (4.8-10.8)
[2024-06-04 05:27] LABS: ALT (SGPT) 13 U/L (0-35); AST (SGOT) 25 U/L (14-36); Albumin 2.9 g/dl (3.5-5.0); Alkaline Phosphatase 43 U/L (38-126); Blood Urea Nitrogen 4 mg/dl (7-17); Calcium 8.7 mg/dl (8.4-10.2); Carbon Dioxide 23 mmol/L (22-30); Chloride 106 mmol/L (98-107); Estimated Creatinine Clearance 83 ml/min; Glucose 111 mg/dl (70-99); Magnesium 1.7 mg/dl (1.6-2.3); Phosphorus 2.9 mg/dl (2.5-4.5); Potassium 3.6 mmol/L (3.5-5.1); Sodium 133 mmol/L (135-145); Total Bilirubin 0.7 mg/dl (0.2-1.3); Total Protein 5.6 g/dl (6.3-8.2); eGFR > 60.00
[2024-06-04] MEDS: D5/0.45%NACL 1000 IV ×2 (05:48→17:33)
[2024-06-04 07:00] VITALS: BP 162/95
[2024-06-04] MEDS: NICODERM TRANSDERMAL 14 MG TRANSDERM (08:17)
[2024-06-04] MEDS: CYANOCOBALAMIN 1000 MCG IM (08:19)
[2024-06-04] MEDS: PROTONIX IV 40 MG IV (08:20)
[2024-06-04] MEDS: NSS (PRESERVATIVE FREE) 10 ML IV (08:20)
--- NOTE | 2024-06-04 10:18 | W.PN.GS2 ---
Today's Communication / Plan
-
- Clears, hold on TPN
- IVF
Assessment / Plan
-
Assessment: 59-year-old female POD#5 s/p laparoscopic appendectomy and washout of intra-abdominal abscesses for complicated acute appendicitis with large intra-abdominal abscess and resultant ileus/pSBO
Operative cultures - E.coli
ROBF, remains distended with tympany, going slow
No major changes from a surgical perspective
Plan:
- Clears, hold on TPN
- IVF
- Continue pain control with IV Dilaudid
- Ativan as needed for patient's anxiety
- Continue Abx: IV Zosyn
- SCDs/Lovenox for VTE prophylaxis
- GI ppx with Protonix
- Encourage ambulation
Subjective Data
-
Date of Service: June 04, 2024
Reports improved abdominal pain and distention. Denies nausea or vomiting. Passing flatus and nonbloody stool. Afebrile.
Objective Data
-
Intake and Output
06/03/24 06/04/24 06/05/24
06:59 06:59 06:59
Intake Total 1480 / 1480 2160 / 2160
Output Total 285 / 285 305 / 305
Balance 1195 / 1195 1855 / 1855
Intake:
Oral fluids 480 / 480 60 / 60
IV fluids (Total) 1000 / 1000 1900 / 1900
IV piggybacks 200 / 200
Output:
Drain Output (Total) 285 / 285 305 / 305
Left Lower Abdomen Dio- 285 / 285 305 / 305
Soares
Other:
Number of approximated SMALL 1
amounts of urine
Number of approximated MODERATE 4 2
amounts of urine
Vital Signs
Temp Pulse Resp BP Pulse Ox
97.9 F 88 16 162/95 95
06/04/24 07:00 06/04/24 07:00 06/04/24 07:00 06/04/24 07:00 06/04/24 07:00
Lab Results
06/04/24 04:42
06/04/24 04:42
Calcium 8.7 mg/dl (8.4-10.2) 06/04/24 04:42
Phosphorus 2.9 mg/dl (2.5-4.5) 06/04/24 04:42
Magnesium 1.7 mg/dl (1.6-2.3) 06/04/24 04:42
Total Bilirubin 0.7 mg/dl (0.2-1.3) 06/04/24 04:42
AST 25 U/L (14-36) 06/04/24 04:42
ALT 13 U/L (0-35) 06/04/24 04:42
Alkaline Phosphatase 43 U/L (38-126) 06/04/24 04:42
Total Protein 5.6 g/dl (6.3-8.2) L 06/04/24 04:42
Albumin 2.9 g/dl (3.5-5.0) L 06/04/24 04:42
Physical Exam
-
Gen: NAD
Abd: soft, mild tenderness, distended, tympanitic (improved), non-peritoneal, incisions c/d/i, NICKY serous
--- NOTE | 2024-06-04 10:49 | PTCARENOTE ---
pt was very tearful this morning (49928 and stated that she was going to go on TPN. Pt is now much more cheerful (2345) as the MD stated they are going to hold off on the TPN for now. Pt very happen, and stated that she will ring it she needs
anything.
--- NOTE | 2024-06-04 11:44 | CM ---
Chart reviewed and case loader operator will follow with patient progress for discharge planning needs.
Plan; To follow with progress.
--- NOTE | 2024-06-04 13:49 | W.PN.HOSP.TC ---
Today's Communication/Plan
-
CLD
Abx
Will switch to PO regimen if continues to tolerate Diet
Assessment / Plan
Assessment / Plan
# Acute appendicitis
POD#5
-CT abdomen pelvis shows inflammation of distal ileum, collapsed terminal ileum with suspicion for possible terminal ileal stricture
-Zofran, Dilaudid
-MRI enterography:The appendix is enlarged, with diameter of 9 mm. The appendix is enhancing with a thickened wall. There is slight enhancement of the adjacent fat suggesting adjacent inflammation. Correlating with recent CT examination, the
findings are highly suggestive of appendicitis.
-GI consulted, input appreciated
pt underwent appendectomy 05/30
Pt started on Zosyn 3.375 IV q6H 05/27 and continuing - can narrow to PO regimen upon DC
#Severe Adynamic Ileus
-bm yesterday
-Advance to [facility]D
-Nutrition consult
#Hyponatremia
-mild
-ctm
Essential hypertension
-oral antiHTN: amlodipine, atenolol, lisinopril, on hold with pt NPO
IV Hydralazine prn,
-Added Catapress TTS until pt able to resume oral antiHTN Rx - can resume PO regimen if OK with Clears
Hypokalemia
monitor and replete
Hypothyroidism
-Continue levothyroxine, will start on IV 60 mcg qday until able to take oral (75% of oral dose to be given IV)
Vit B-12 defic
noted pt had macrocytic indices, was not anemic on admission
B-12 <159
will continue supplement
Hyperlipidemia
-pt currently NPO
Active smoker
remains on Nicoderm
Full code
DVT prophylaxis�Lovenox
Anticipated Discharge: 24 - 48 hours
Subjective/Interval History
-
Date of Service: June 04, 2024
had bm yesterday
Objective Data
-
Labs:
Laboratory Results
06/04/24
04:42
WBC 5.5
Hgb 11.5 L
Hct 32.4 L
Plt Count 270
Sodium 133 L
Potassium 3.6
Chloride 106
Carbon Dioxide 23
BUN 4 L
Creatinine 0.7
Glucose 111 H
Calcium 8.7
Total Bilirubin 0.7
AST 25
ALT 13
Alkaline Phosphatase 43
Vital Signs:
Vital Signs
Temp Pulse Resp BP Pulse Ox
97.9 F 88 16 162/95 95
06/04/24 07:00 06/04/24 07:00 06/04/24 07:00 06/04/24 07:00 06/04/24 07:00
I&O
06/03/24 06/04/24 06/05/24
06:59 06:59 06:59
Intake Total 1480 / 1480 2160 / 2160
Output Total 285 / 285 305 / 305
Balance 1195 / 1195 1855 / 1855
Review of Systems
-
History Source: Patient
Constitutional: Denies Fever
EENT: Reports No Symptoms Reported and Other (NG tube in place)
Respiratory: Reports No Symptoms; Denies Trouble Breathing
Cardiac: Reports No Symptoms; Denies Chest Pain
Abdomen/GI: Reports Abdominal Pain (post op, starting to lessen in intensity)
Genitourinary: Reports No Symptoms
Physical Exam
-
General: Well Developed, Well Nourished and No Apparent Distress
HEENT: Normocephalic, Atraumatic, Moist Mucous Membranes and Other (no flattening of tongue papilla)
Respiratory: Clear to Auscultation; Negative Wheezes, Rales or Rhonchi
Cardiac: Regular Rhythm and S1/S2
GI: Soft, Nondistended, Normal Bowel Sounds (has become more ctve pst 24 hrs) and Tender (post op)
Musculoskeletal: No Clubbing, No Cyanosis and No Edema
Data Reviewed
-
Diagnostic Radiology: Image personally visualized and interpreted and Report Reviewed by me
Labs: Labs Reviewed by me
[2024-06-04] MEDS: APRESOLINE 5 MG IV (14:57)
[2024-06-04 15:00] VITALS: BP 179/98
[2024-06-04] MEDS: LEVOTHROID 60 MCG IV (17:32)
[2024-06-04] MEDS: LOVENOX 40 MG SC (17:32)
[2024-06-04 18:06] VITALS: BP 161/85
[2024-06-04] MEDS: ATIVAN 0.5 MG IV (18:15)
[2024-06-04] MEDS: NSS (PRESERVATIVE FREE) 0.25 ML IV (18:15)
[2024-06-04 23:00] VITALS: BP 149/90
[2024-06-05] MEDS: ZOSYN 50 IV ×2 (03:00→07:53)
[2024-06-05 05:34] LABS: Hematocrit 30.1 % (37.0-47.0); Hemoglobin 10.7 g/dL (12.0-16.0); Mean Corp Hgb Conc. 35.5 g/dL (33.0-37.0); Mean Corpuscular Hgb 34.5 pg (27.0-31.0); Mean Corpuscular Volume 97.1 fL (81.0-99.0); Mean Platelet Volume 8.9 fL (7.4-10.4); Platelet Count 280 10^3/uL (130-400); Red Cell Dist. Width 13.8 % (11.5-14.5)
[2024-06-05 05:57] LABS: ALT (SGPT) 14 U/L (0-35); AST (SGOT) 28 U/L (14-36); Albumin 2.9 g/dl (3.5-5.0); Alkaline Phosphatase 41 U/L (38-126); Blood Urea Nitrogen 5 mg/dl (7-17); Calcium 8.8 mg/dl (8.4-10.2); Carbon Dioxide 24 mmol/L (22-30); Chloride 106 mmol/L (98-107); Estimated Creatinine Clearance 73 ml/min; Glucose 105 mg/dl (70-99); Potassium 3.3 mmol/L (3.5-5.1); Sodium 135 mmol/L (135-145); Total Bilirubin 0.7 mg/dl (0.2-1.3); Total Protein 5.5 g/dl (6.3-8.2); eGFR > 60.00
[2024-06-05 07:00] VITALS: BP 162/95
[2024-06-05] MEDS: NICODERM TRANSDERMAL 14 MG TRANSDERM (07:53)
[2024-06-05] MEDS: CYANOCOBALAMIN 1000 MCG IM (07:54)
[2024-06-05] MEDS: PROTONIX IV 40 MG IV (07:54)
[2024-06-05] MEDS: NSS (PRESERVATIVE FREE) 10 ML IV (07:55)
[2024-06-05] MEDS: KCL 270 MEQ IV (09:37)
--- NOTE | 2024-06-05 10:44 | W.PN.GS2 ---
Today's Communication / Plan
-
Adv to LRD
DC IVF
Multimodal pain mgmt
Assessment / Plan
-
Assessment: 59-year-old female POD#6 s/p laparoscopic appendectomy and washout of intra-abdominal abscesses for complicated acute appendicitis with large intra-abdominal abscess and resultant ileus/pSBO
Operative cultures - E.coli
ROBF, remains distended with tympany, going slow
No major changes from a surgical perspective
Plan:
- Adv to LRD, advised to go slow
- D/C IVF
- Continue pain control, add PO meds PRN
- Ativan as needed for patient's anxiety
- Continue Abx: IV Zosyn
- SCDs/Lovenox for VTE prophylaxis
- GI ppx with Protonix
- Encourage ambulation
Subjective Data
-
Date of Service: June 05, 2024
AFVSS, osvaldo sips yesterday, frustrated that she cannot eat, she reports passing flatus and BM, denies n/v
Objective Data
-
Intake and Output
06/04/24 06/05/24 06/06/24
06:59 06:59 06:59
Intake Total 2160 / 2160 920 / 920
Output Total 305 / 305 170 / 170
Balance 1855 / 1855 750 / 750
Intake:
Oral fluids 60 / 60 720 / 720
IV fluids (Total) 1900 / 1900
IV piggybacks 200 / 200 200 / 200
Output:
Drain Output (Total) 305 / 305 170 / 170
Left Lower Abdomen Dio- 305 / 305 70 / 70
Soares
Right 100 / 100
Other:
Number of approximated MODERATE 2 3
amounts of urine
Vital Signs
Temp Pulse Resp BP Pulse Ox
98.0 F 85 18 162/95 95
07/31/24 07:00 06/05/24 07:00 06/05/24 07:00 06/05/24 07:00 06/05/24 07:00
Lab Results
06/05/24 05:11
06/05/24 05:11
Calcium 8.8 mg/dl (8.4-10.2) 06/05/24 05:11
Phosphorus 2.9 mg/dl (2.5-4.5) 06/04/24 04:42
Magnesium 1.7 mg/dl (1.6-2.3) 06/04/24 04:42
Total Bilirubin 0.7 mg/dl (0.2-1.3) 06/05/24 05:11
AST 28 U/L (14-36) 06/05/24 05:11
ALT 14 U/L (0-35) 06/05/24 05:11
Alkaline Phosphatase 41 U/L (38-126) 06/05/24 05:11
Total Protein 5.5 g/dl (6.3-8.2) L 06/05/24 05:11
Albumin 2.9 g/dl (3.5-5.0) L 06/05/24 05:11
Physical Exam
-
Gen: NAD
Abd: softly distended, incisions cdi, drain ss
--- NOTE | 2024-06-05 11:16 | VATNOTE ---
R lower arm swelling noticed upon assessment. TT sent to Dr. Vela for ultrasound order. Will continue to monitor.
--- NOTE | 2024-06-05 13:46 | CM ---
Chart reviewed and plan is to home when stable.
Plan; Home when stable.
--- NOTE | 2024-06-05 14:01 | W.PN.HOSP.TC ---
Today's Communication/Plan
-
switch to ceftriaxone
Add back amlodipine/ACEI
LRD
Assessment / Plan
Assessment / Plan
General: Well Developed, Well Nourished and No Apparent Distress
HEENT: Normocephalic, Atraumatic, Moist Mucous Membranes
Respiratory: Clear to Auscultation; Negative Wheezes, Rales or Rhonchi
Cardiac: Regular Rhythm and S1/S2
GI: Soft, Nondistended, Normal Bowel Sounds
Musculoskeletal: No Clubbing, No Cyanosis and No Edema
# Acute appendicitis
-Wond cultures - Ecoli
POD#6
-CT abdomen pelvis shows inflammation of distal ileum, collapsed terminal ileum with suspicion for possible terminal ileal stricture
-Zofran, Dilaudid
-MRI enterography:The appendix is enlarged, with diameter of 9 mm. The appendix is enhancing with a thickened wall. There is slight enhancement of the adjacent fat suggesting adjacent inflammation. Correlating with recent CT examination, the
findings are highly suggestive of appendicitis.
-GI consulted, input appreciated
pt underwent appendectomy 05/30
Pt started on Zosyn 3.375 IV q6H 05/27 and continuing - can narrow to ceftriaxone
-Adv to LRD
#Severe Adynamic Ileus
-bm yesterday
-Advance to LRD
-Nutrition consult
#Hyponatremia
-mild
-ctm
Essential hypertension
-oral antiHTN: atenolol on hold with pt NPO; resume atenolol and lisinopril today
IV Hydralazine prn,
-DC Catapress TTS
Hypokalemia
monitor and replete
Hypothyroidism
-Continue levothyroxine, will start on IV 60 mcg qday until able to take oral (75% of oral dose to be given IV)
Vit B-12 defic
noted pt had macrocytic indices, was not anemic on admission
B-12 <159
will continue supplement
Hyperlipidemia
Active smoker
remains on Nicoderm
Full code
DVT prophylaxis�Lovenox
Anticipated Discharge: 24 - 48 hours
Subjective/Interval History
-
Date of Service: June 05, 2024
passing flatus, BM yesterday; adv to LRD
Objective Data
-
Labs:
Laboratory Results
06/05/24
05:11
WBC 5.0
Hgb 10.7 L
Hct 30.1 L
Plt Count 280
Sodium 135
Potassium 3.3 L
Chloride 106
Carbon Dioxide 24
BUN 5 L
Creatinine 0.8
Glucose 105 H
Calcium 8.8
Total Bilirubin 0.7
AST 28
ALT 14
Alkaline Phosphatase 41
Vital Signs:
Vital Signs
Temp Pulse Resp BP Pulse Ox
98.0 F 85 18 162/95 95
06/05/24 07:00 06/05/24 07:00 06/05/24 07:00 06/05/24 07:00 06/05/24 07:00
I&O
06/04/24 06/05/24 06/06/24
06:59 06:59 06:59
Intake Total 2160 / 2160 920 / 920
Output Total 305 / 305 170 / 170
Balance 1855 / 1855 750 / 750
Review of Systems
-
History Source: Patient
All other systems: Not reviewed unless documented
Data Reviewed
-
Diagnostic Radiology: Image personally visualized and interpreted and Report Reviewed by me
Labs: Labs Reviewed by me
[2024-06-05 15:30] VITALS: BP 181/94
[2024-06-05] MEDS: ZOSYN IV (15:33)
[2024-06-05] MEDS: UNASYN IV ×2 (15:40→22:41)
[2024-06-05] MEDS: LOVENOX 40 MG SC (17:32)
[2024-06-05] MEDS: NSS (PRESERVATIVE FREE) 0.25 ML IV (20:02)
[2024-06-05] MEDS: ATIVAN 0.5 MG IV (20:03)
[2024-06-05 22:40] VITALS: BP 178/98
[2024-06-05] MEDS: NORVASC 10 MG PO (22:40)
[2024-06-05] MEDS: ZESTRIL 40 MG PO (22:40)
[2024-06-05 23:39] VITALS: BP 178/98
[2024-06-06] MEDS: SYNTHROID 88 MCG PO (04:30)
[2024-06-06] MEDS: UNASYN IV ×2 (04:30→09:27)
--- NOTE | 2024-06-06 07:30 | W.PN.GS2 ---
Addendum entered and electronically signed by Werner Mcmahon MD 06/18/24 11:24:
per CDI query inflammatory adhesions is merely my description of the operative findings they lysis was neither extensive nor non extensive.
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
Original Note:
Today's Communication / Plan
-
Clear for discharge today from surgical standpoint
Assessment / Plan
-
Assessment: 59-year-old female POD#7 s/p laparoscopic appendectomy and washout of intra-abdominal abscesses for complicated acute appendicitis with large intra-abdominal abscess and resultant ileus/pSBO
Operative cultures - E.coli
Return of bowel function, remains mildly distended
No major changes from a surgical perspective
Plan:
- Tolerating low residue diet
- Continue pain control, add PO meds
- Ativan as needed for patient's anxiety
- Continue Abx: IV Unasyn
- Encourage ambulation
- SCDs/Lovenox for VTE prophylaxis
Time Spent
Total Time Spent with Patient (in minutes): 15
Subjective Data
-
Date of Service: June 06, 2024
Interval events: Remains afebrile, tolerated low residue diet, able to pass flatus and bowel movement, denies nausea/vomiting. Patient anxious and tearful and and requested discharge as she thinks she is back to her baseline.
Objective Data
-
Intake and Output
06/05/24 06/06/24/12/30
06:59 06:59 06:59
Intake Total 920 / 920 1200 / 1200
Output Total 170 / 170 100 / 100
Balance 750 / 750 1100 / 1100
Intake:
Oral fluids 720 / 720 960 / 960
IV piggybacks 200 / 200 240 / 240
Output:
Drain Output (Total) 170 / 170 100 / 100
Left Lower Abdomen Dio- 70 / 70 100 / 100
Soares
Right 100 / 100
Other:
Number of approximated MODERATE 3 2
amounts of urine
Number of approximated LARGE 1
amounts of urine
Vital Signs
Temp Pulse Resp BP Pulse Ox
98.3 F 85 16 178/98 94
06/05/24 22:40 06/05/24 22:40 06/05/24 22:40 06/05/24 22:40 06/05/24 22:40
Calcium 8.8 mg/dl (8.4-10.2) 06/05/24 05:11
Phosphorus 2.9 mg/dl (2.5-4.5) 06/04/24 04:42
Magnesium 1.7 mg/dl (1.6-2.3) 06/04/24 04:42
Total Bilirubin 0.7 mg/dl (0.2-1.3) 06/05/24 05:11
AST 28 U/L (14-36) 06/05/24 05:11
ALT 14 U/L (0-35) 06/05/24 05:11
Alkaline Phosphatase 41 U/L (38-126) 06/05/24 05:11
Total Protein 5.5 g/dl (6.3-8.2) L 06/05/24 05:11
Albumin 2.9 g/dl (3.5-5.0) L 06/05/24 05:11
Physical Exam
-
Visibly anxious and tearful
Abdomen: Soft, mild distention, nontender. No significant guarding or rebound.
NICKY with serous fluid.
[2024-06-06 08:14] VITALS: BP 158/99
[2024-06-06] MEDS: PROTONIX 40 MG PO (08:30)
[2024-06-06] MEDS: CYANOCOBALAMIN 1000 MCG IM (08:30)
[2024-06-06] MEDS: NICODERM TRANSDERMAL 14 MG TRANSDERM (08:30)
[2024-06-06 08:39] LABS: Hematocrit 33.6 % (37.0-47.0); Hemoglobin 11.7 g/dL (12.0-16.0); Mean Corp Hgb Conc. 34.8 g/dL (33.0-37.0); Mean Corpuscular Hgb 35.1 pg (27.0-31.0); Mean Corpuscular Volume 100.9 fL (81.0-99.0); Mean Platelet Volume 9.2 fL (7.4-10.4); Platelet Count 301 10^3/uL (130-400); Red Blood Cell Count 3.33 10^6/uL (4.20-5.40); White Blood Cell Count 5.7 10^3/uL (4.8-10.8)
[2024-06-06 09:21] LABS: ALT (SGPT) 18 U/L (0-35); AST (SGOT) 34 U/L (14-36); Albumin 3.4 g/dl (3.5-5.0); Alkaline Phosphatase 51 U/L (38-126); Blood Urea Nitrogen 5 mg/dl (7-17); Calcium 8.9 mg/dl (8.4-10.2); Carbon Dioxide 22 mmol/L (22-30); Chloride 106 mmol/L (98-107); Estimated Creatinine Clearance 73 ml/min; Glucose 91 mg/dl (70-99); Potassium 3.4 mmol/L (3.5-5.1); Sodium 136 mmol/L (135-145); Total Bilirubin 0.6 mg/dl (0.2-1.3); Total Protein 6.2 g/dl (6.3-8.2); eGFR > 60.00
--- NOTE | 2024-06-06 13:00 | CM ---
met with patient at bedside; patient reported that neighbor will provide transport home
Plan: discharge to home; no needs
--- NOTE | 2024-06-06 13:43 | W.PN.HOSP.TC ---
Addendum entered and electronically signed by Evens Gomez MD 06/08/24 15:25:
[id number]
Original Note:
Today's Communication/Plan
-
Augmentin to complete 14 day total course after Surgery
BMP in 3-5 days with pcp
F/u PCP, Surgery outpatient
Assessment / Plan
Assessment / Plan
General: Well Developed, Well Nourished and No Apparent Distress
HEENT: Normocephalic, Atraumatic, Moist Mucous Membranes
Respiratory: Clear to Auscultation; Negative Wheezes, Rales or Rhonchi
Cardiac: Regular Rhythm and S1/S2
GI: Soft, Nondistended, Normal Bowel Sounds
Musculoskeletal: No Clubbing, No Cyanosis and No Edema
# Acute appendicitis
# intra-abdominal abscesses
-Wound cultures - Ecoli
POD#7
-CT abdomen pelvis shows inflammation of distal ileum, collapsed terminal ileum with suspicion for possible terminal ileal stricture
-Zofran, Dilaudid
-MRI enterography:The appendix is enlarged, with diameter of 9 mm. The appendix is enhancing with a thickened wall. There is slight enhancement of the adjacent fat suggesting adjacent inflammation. Correlating with recent CT examination, the
findings are highly suggestive of appendicitis.
-GI consulted, input appreciated
pt underwent appendectomy 05/30
Pt started on Zosyn 3.375 IV q6H 05/27 and continuing - can narrow to Unasyn- transition to Augmentin to complete 14 day course total after procedure date.
-Adv to LRD - cont
#Severe Adynamic Ileus
-having BMs
-Advance to LRD
-Nutrition consult
#Hyponatremia
-mild
-ctm
Essential hypertension
-oral antiHTN: atenolol on hold with pt NPO; resume atenolol and lisinopril
IV Hydralazine prn,
-DC Catapress TTS
Hypokalemia
monitor and replete
Monitor bmp outpatient
Hypothyroidism
-Continue levothyroxine
Vit B-12 defic
noted pt had macrocytic indices, was not anemic on admission
B-12 <159
will continue supplement
# minimal nonocclusive thrombus formation on the PICC line catheter in the subclavian vein.
-PICC line removed
Hyperlipidemia
Active smoker
remains on Nicoderm
Full code
DVT prophylaxis�Lovenox
More than 30 minutes spent in discharge including
Final examination of the patient
Summarizing hospital stay
Instructions for continuing care to all relevant caregivers
Preparation of discharge records, prescriptions, and referral forms
Total time spent (35 in minutes):
Anticipated Discharge: Today
Subjective/Interval History
-
Date of Service: June 06, 2024
tolerating diet, having BMs
Objective Data
-
Labs:
Laboratory Results
06/06/24
08:10
WBC 5.7
Hgb 11.7 L
Hct 33.6 L
Plt Count 301
Sodium 136
Potassium 3.4 L
Chloride 106
Carbon Dioxide 22
BUN 5 L
Creatinine 0.8
Glucose 91
Calcium 8.9
Total Bilirubin 0.6
AST 34
ALT 18
Alkaline Phosphatase 51
Vital Signs:
Vital Signs
Temp Pulse Resp BP Pulse Ox
97.6 F 93 16 158/99 99
06/06/24 08:14 06/06/24 08:14 06/06/24 08:14 06/06/24 08:14 06/06/24 08:30
I&O
06/05/24 06/06/24 06/07/24
06:59 06:59 06:59
Intake Total 920 / 920 1200 / 1200
Output Total 170 / 170 100 / 100
Balance 750 / 750 1100 / 1100
Review of Systems
-
History Source: Patient
All other systems: Not reviewed unless documented
Data Reviewed
-
Diagnostic Radiology: Image personally visualized and interpreted and Report Reviewed by me
CT Scan: Image personally visualized and interpreted and Report Reviewed by me
Labs: Labs Reviewed by me
--- NOTE | 2024-06-06 13:52 | W.DS.TRANS ---
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
-
Discharge Instructions:
Discharge Diagnosis/Procedures
# Acute appendicitis
#intra-abdominal abscesses
# ileus/pSBO
Diet Low Residue,Low Fat,Low Cholesterol
Activity No strenuous activity
Additional Activity Do not lift over 15 pounds for the next 2-3
weeks
Bathing Restrictions OK to Shower
Blood Work bmp in 5 days with pcp
Wound Care Ok to shower. Wash incisions gently with soap
and water. Avoid scrubbing or picking off glue
and allow it to flake off on its own. Cover the
drain site with clean gauze or a bandaid and
change daily and as needed if soaked with fluid.
Instructions:
Stand-Alone Forms:
Changes to Home Medications: Yes
Discharge Medications:
DC Medications w/original date entered in [employer]
amlodipine 10 mg tablet 10 mg PO HS Blood Pressure 05/27/24
atenolol 50 mg tablet 50 mg PO HS Blood Pressure 05/27/24
fenofibrate nanocrystallized 145 mg tablet 145 mg PO HS High Cholesterol 05/27/24
levothyroxine 88 mcg tablet 88 mcg PO DAILY Thyroid 05/27/24
lisinopril 40 mg tablet 40 mg PO HS Blood Pressure 05/27/24
rosuvastatin 40 mg tablet 40 mg PO HS High Cholesterol 05/27/24
amoxicillin 875 mg-potassium clavulanate 125 mg tablet 1 tab PO Q12H 8 days #16 tabs 06/06/24
pantoprazole 40 mg tablet,delayed release 40 mg PO DAILY 30 days #30 tabs 06/06/24
Home Medication Changes
amoxicillin 875 mg-potassium clavulanate 125 mg tablet 1 tab PO Q12H 8 days #16 tabs 06/06/24
pantoprazole 40 mg tablet,delayed release 40 mg PO DAILY 30 days #30 tabs 06/06/24
Pending Results: No
[2024-06-06] MEDS: KCL ELIXIR 40 MEQ PO (14:00)
[2024-06-06 14:45] VITALS: BP 160/75
--- NOTE | 2024-06-07 09:15 | PN.CDI ---
CDI
- -
CDI:
Physician Documentation Request
Admit Date: 05/29/24 15:56
Dear Doctor Salome ,
Please review the following and provide your response in the progress notes.
Clinical Indicators:
Pt admitted with Acute appendicitis with localized peritonitis and abscess/perforation /Ileus/pSBO
Documented per operative report, ' In the right lower quadrant there were inflammatory adhesions from the terminal ileum and what appeared to be the sigmoid colon to the anterior abdominal wall, which was blocking off the right lower quadrant. As I
began to free these, there was free pus that was evacuated and a large abscess cavity ... I now began to reflect the inflammatory adhesions of the terminal ileum from the right pelvic sidewall. Once this was freed, it appeared as though there was a
tight kink in the small bowel from these inflammatory adhesions, which was likely responsible for the patient's developing ileus and even probably a mechanical small bowel obstruction from the acute appendicitis....any of the inflammatory adhesions
in the distal ileum were completely freed up...'
Please provide a diagnosis for the above findings of inflammatory adhesions/treatment :
Extensive Lysis of adhesions
Non-Extensive Lysis of adhesions
Other (please specify)
Use of terms such as suspected, likely, concern for, or probable (associated with a specific diagnosis that is being evaluated, monitored, or treated as if it exists) are acceptable and can be coded in the inpatient setting, when documented at the
time of discharge.
Thank you,
Elizabeth Baca RN
CDI Specialist
[employer]
Please use your independent medical judgment in providing your response.
--- NOTE | 2024-06-10 08:38 | PN.CDI ---
CDI
- -
CDI:
Physician Documentation Request
Admit Date: 05/29/24 15:56
Dear Doctor,
Please review the following and provide your response in the progress notes.
Clinical Indicators:
The diagnosis of well differentiated neuroendocrine tumor GI was included in the signed
Additional clinical indicators in the chart include:
Pt admitted with Acute appendicitis with localized peritonitis and abscess/perforation /Ileus/pSBO
Please indicate in your progress notes if you are in agreement that the above diagnosis is valid for this patient:
____ - Well differentiated neuroendocrine tumor GI is a valid diagnosis (Please include it in your progress notes)
____ - Well differentiated neuroendocrine tumor GI is not a valid diagnosis for this patient
____ - Other
Use of terms such as suspected, likely, concern for, or probable are acceptable for a diagnosis that is being evaluated, monitored or treated as if it exists and can be coded in the inpatient setting, when documented at the time of discharge.
Thank you,
Elizabeth Baca RN
CDI Specialist
[employer]
Please use your independent medical judgment in providing your response.
== END 2024-06-06 15:33 | disposition home or self-care (01) | DRG 829 ==
LOC: 4 WEST ACU 15:56
PROVIDERS: Internal Medicine; Internal Medicine Gastroenterology; Physician Assistant; ADMITTING PHYSICIAN Hospitalist; ATTENDING PHYSICIAN Internal Medicine; CONSULT PHYSICIAN Specialist; CONSULT PHYSICIAN Surgery; EMERGENCY PHYSICIAN Emergency Medicine; FAMILY PHYSICIAN Nurse Practitioner
PROC: 0DNB4ZZ Release Ileum, Percutaneous Endoscopic Approach (ICD-10-PCS; 2024-05-30)
PROC: 0DTJ4ZZ Resection of Appendix, Percutaneous Endoscopic Approach (ICD-10-PCS; 2024-05-30)
DX: C7A.8 Other malignant neuroendocrine tumors (principal); K35.33 Acute appendicitis with perforation, localized peritonitis, and gangrene, with abscess; K56.51 Intestinal adhesions [bands], with partial obstruction; K56.0 Paralytic ileus; E87.1 Hypo-osmolality and hyponatremia; I82.B11 Acute embolism and thrombosis of right subclavian vein; T82.868A Thrombosis due to vascular prosthetic devices, implants and grafts, initial encounter; R18.8 Other ascites; I10 Essential (primary) hypertension; E03.9 Hypothyroidism, unspecified; Y71.2 Prosthetic and other implants, materials and accessory cardiovascular devices associated with adverse incidents; B96.20 Unspecified Escherichia coli [E. coli] as the cause of diseases classified elsewhere; F17.210 Nicotine dependence, cigarettes, uncomplicated; E78.00 Pure hypercholesterolemia, unspecified; E53.8 Deficiency of other specified B group vitamins; K52.9 Noninfective gastroenteritis and colitis, unspecified; F40.240 Claustrophobia; M54.50 Low back pain, unspecified; G89.29 Other chronic pain; E87.6 Hypokalemia; Z79.890 Hormone replacement therapy; Z79.899 Other long term (current) drug therapy
CPT/HCPCS: 88304; 71045; 72197; 74019; 74177; 74183; 80048; 80053; 81003; 81015; 82607; 82746; 83605; 83690; 83735; 84100; 84439; 84443; 84484; 85025; 85027; 85652; 86140; 87070; 87075; 87077; 87186; 87205; 88341; 88342; 93005; 93971; 94640; 96361; 96374; 96375; 99285; 99406; A9575; Q9967

== ENCOUNTER → 2024-08-07 06:18 | Day surgery (SDC) | payer OTHER, SELFPAY | LOC: GI 06:18 | PROVIDERS: ATTENDING PHYSICIAN Specialist; FAMILY PHYSICIAN Nurse Practitioner | DX: Z12.11 Encounter for screening for malignant neoplasm of colon (principal); K63.5 Polyp of colon; K57.30 Diverticulosis of large intestine without perforation or abscess without bleeding; K63.89 Other specified diseases of intestine; R93.3 Abnormal findings on diagnostic imaging of other parts of digestive tract | CPT/HCPCS: 45380; 88305 ==

== ENCOUNTER → 2024-11-04 14:47 | Outpatient (REF) | payer OTHER, SELFPAY | LOC: RCS 14:47 | PROVIDERS: ATTENDING PHYSICIAN Nurse Practitioner | DX: R55 Syncope and collapse (principal) | CPT/HCPCS: 93306 ==

== ENCOUNTER → 2024-11-08 08:16 | Outpatient (REF) | payer OTHER, SELFPAY | LOC: RCS 08:16 | PROVIDERS: ATTENDING PHYSICIAN Nurse Practitioner | DX: R55 Syncope and collapse (principal) | CPT/HCPCS: 93225; 93226 ==

== ENCOUNTER → 2024-11-22 10:13 | Outpatient (REF) | payer OTHER, SELFPAY | LOC: HWRAD 10:13 | PROVIDERS: ATTENDING PHYSICIAN Nurse Practitioner | DX: Z87.891 Personal history of nicotine dependence (principal) | CPT/HCPCS: 71271 ==

== ENCOUNTER → 2024-12-06 06:41 | Outpatient (REF) | payer OTHER, SELFPAY | LOC: MRI 3T 06:41 | PROVIDERS: ATTENDING PHYSICIAN Nurse Practitioner | DX: R55 Syncope and collapse (principal) | CPT/HCPCS: 70551 ==

== ENCOUNTER 2024-12-09 06:23 | Day surgery (SDC) | payer OTHER, SELFPAY ==
[2024-12-02 11:07] LABS: PT 13.5 Sec (11.4-14.6)
[2024-12-02 11:08] LABS: APTT 27.2 Sec (23.4-35.0)
[2024-12-02 14:05] VITALS: BMI 24.8
[2024-12-09] VITALS (7 sets, daily range): BP systolic 106–139; BP diastolic 59–92; BMI 24.8
== END 2024-12-09 14:22 | disposition home or self-care (01) ==
LOC: SDS 06:23
PROVIDERS: ATTENDING PHYSICIAN Internal Medicine Critical Care Medicine; FAMILY PHYSICIAN Nurse Practitioner
DX: J42 Unspecified chronic bronchitis (principal); R91.1 Solitary pulmonary nodule; R59.1 Generalized enlarged lymph nodes
CPT/HCPCS: 31629; 31625; 31624; 31623; 31627; 31654; 88173; 88305; 36415; 71045; 76000; 85610; 85730; 87070; 87205; 88112; 88333; 93005; C1887